=== PATIENT | male | born 1940 | race Caucasian/White ===

== ENCOUNTER 2018-08-30 20:21 | Outpatient (REF) | payer MEDICARE, SELFPAY ==
[2018-08-30 20:45] LABS: Anion Gap 7.5 mmol/L (3-11); BUN 20 mg/dL (7-18); CO2 30.5 mmol/L (21.0-32.0); CREATININE 0.96 mg/dL (0.70-1.30); Calcium 8.4 mg/dL (8.5-10.1); Chloride 104 mmol/L (98-107); Glucose 175 mg/dL (70-100); Potassium 4.1 mmol/L (3.5-5.1); Sodium 142 mmol/L (136-145)
== END 2018-08-30 20:41 ==
LOC: NCHCN 20:21
PROVIDERS: PCP Specialist/Technologist Athletic Trainer; Visit Provider Specialist/Technologist Athletic Trainer
DX: E11.9 Type 2 diabetes mellitus without complications (principal)
CPT/HCPCS: 80048

== ENCOUNTER 2018-09-19 09:37 | Outpatient (REF) | payer MEDICARE, SELFPAY ==
[2018-09-19 22:44] LABS: Cholesterol 175 mg/dL (50-200); HDL Cholesterol 31 mg/dL (40-60); LDL CHOLESTEROL 97 mg/dL (<100); Triglyceride 199 mg/dL (30-150)
== END 2018-09-19 09:57 ==
LOC: NCHCN 09:37
PROVIDERS: PCP Specialist/Technologist Athletic Trainer; Visit Provider Specialist/Technologist Athletic Trainer
DX: E78.5 Hyperlipidemia, unspecified (principal)
CPT/HCPCS: 80061; 83721

== ENCOUNTER 2019-08-27 12:44 | Outpatient (REF) | payer MEDICARE, SELFPAY ==
[2019-08-27 22:21] LABS: ALT 27 U/L (16-63); AST 16 U/L (15-37); Albumin 3.5 g/dL (3.4-5.0); Alkaline Phosphatase 90 U/L (46-116); Anion Gap 7.7 mmol/L (3-11); BUN 24 mg/dL (7-18); Bilirubin, Total 0.5 mg/dL (0.2-1.0); CO2 29.3 mmol/L (21.0-32.0); CREATININE 0.99 mg/dL (0.70-1.30); Calcium 8.4 mg/dL (8.5-10.1); Calculated LDL 58 mg/dL; Chloride 107 mmol/L (98-107); Cholesterol 150 mg/dL (<200); Glucose 144 mg/dL (74-106); HDL Cholesterol 25 mg/dL (40-60); Magnesium 1.8 mg/dL (1.8-2.4); Sodium 144 mmol/L (136-145); Total Protein 6.5 g/dL (6.4-8.2); Triglyceride 339 mg/dL (<150)
== END 2019-08-27 13:04 ==
LOC: NCHCN 12:44
PROVIDERS: PCP Specialist/Technologist Athletic Trainer; Visit Provider Specialist/Technologist Athletic Trainer
DX: E11.9 Type 2 diabetes mellitus without complications (principal); E78.5 Hyperlipidemia, unspecified
CPT/HCPCS: 80053; 80061; 83735

== ENCOUNTER 2020-03-28 10:10 | Emergency (ER) | payer MEDICARE, SELFPAY ==
[2020-03-28 10:13] VITALS: BP 158/79; PULSE 54; RESP 16; TEMP 36.4; O2SAT 100
--- NOTE | 2020-03-28 10:25 | ED.GENADUL_ITS ---
Discharge Plan Disposition Patient Disposition: HOME Condition: Stable Discharge Details Chief Complaint: Laceration Clinical Impression: Laceration of leg, right Primary Care Provider: Yordan Licea ED Provider: Jhony Poon Home Meds and New Rx's Prescriptions: Continued Reliv Vitamin Packs 3 cap PO DAILY RF: 0 metformin 500 mg tablet 500 mg PO BID RF: 0 gabapentin 300 mg capsule 300 mg PO DAILY RF: 0 Discharge Instructions Instructions: Laceration (ED) Additional Instructions: return in 10 days for evaluation of the woud for suture removal if you have spreading redness, worsening pain or yellow/white discharge return to the emergency department Medical Decision Making 80 yo male comes in after he was using a kristine saw and it slipped causing about an 8 cm laceration about 4cm superior to the anterior knee. It runs horizontal and he has full range of motion of the knee and hip and has intact senastion and pulses, no cuts over the knee to suggest capsule violation and no evidence of tendon injury. Will suture wound closed placed one running suture and then one simple suture to close small area that did not close and he tolerated well without complications, will d/c home Differential Diagnosis Differential Diagnosis: laceration, abrasion HPI General Mode of arrival: ambulatory . Date/Time Provider Initiated Documentation: 03/28/20 10:10 . Limitations to Documentation: no limitations . Information obtained by: patient . History of Present Illness 80 year old M presents to the emergency department with the chief complaint of right leg laceration, described as moderate, Patient started experiencing this hour(s) (1) and it has been constant. No relieving factors improve symptom(s), No exacerbating factors reported . Patient did receive the following treatments prior to arrival, none Related Data Home Medications Medication Instructions Recorded Confirmed Reliv Vitamin Packs 3 cap PO DAILY 09/07/16 09/08/16 gabapentin 300 mg PO DAILY 03/28/20 03/28/20 metformin 500 mg PO BID 03/28/20 03/28/20 Allergies Allergy/AdvReac Type Severity Reaction Status Date / Time No Known Allergies Allergy Unverified 03/28/20 10:17 General Stated Complaint: Laceration LEENA: 3 Review of Systems All systems reviewed & are unremarkable except as noted in HPI and below Constitutional Constitutional: Denies chills, Denies fever(s) and Denies weakness Cardiovascular Cardiovascular: Denies chest pain and Denies dyspnea Respiratory Respiratory: Denies cough and Denies dyspnea Gastrointestinal Gastrointestinal: Denies abdominal pain, Denies nausea and Denies vomiting Musculoskeletal Musculoskeletal: Denies joint swelling Neurologic Neurologic: Denies weakness [facility] Surgical History (Updated 05/31/18 @ 14:33 by [employer] [facility] [place]) Tonsillectomy and adenoidectomy Social History Smoking/Tobacco Use Status: Former Tobacco Use Alcohol Intake: never Drug use: Never Substance use type: does not use Do you feel safe at home: Yes Do you feel safe in your relationship?: Yes Exam Const General: no acute distress Orientation: alert HENGA Head: normal to inspection Ears: external ears normal General nose exam: external nose normal Mouth: moist mucous membranes Eyes General: appearance normal, both eyes and all related structures Neck Neck: normal visual inspection Resp Effort & Inspection: normal respiratory effort and able to speak in complete sentences Cardio Rate: regular rate Skin General skin exam: no rashes or lesions noted Neuro General: patient alert and patient oriented x3 Extrem General: full ROM and capillary refill normal Psych Mental Status: mental status grossly normal Course Vital Signs Vital signs: Vital Signs Temperature 36.4 C L 03/28/20 10:13 Pulse 54 L 03/28/20 10:13 Respiratory Rate 16 03/28/20 10:13 Blood Pressure 158/79 H 03/28/20 10:13 Pulse Oximetry 100 03/28/20 10:13 Temperature 36.4 C L 03/28/20 10:13 Temperature Source Tympanic 03/28/20 10:13 Pulse 54 L 03/28/20 10:13 Respiratory Rate 16 03/28/20 10:13 Respiratory Effort Non-Labored 03/28/20 10:17 Blood Pressure 158/79 H 03/28/20 10:13 Blood Pressure Position Sitting 03/28/20 10:13 Pulse Oximetry 100 03/28/20 10:13 Oxygen Delivery Method Room Air 03/28/20 10:13 Oxygen Flow Rate 0 03/28/20 10:13 Pain Level 10 03/28/20 10:13 Procedures Laceration Laceration 1: Site: lower extremity Side (If applicable): right Size (cm): 8 Description: linear Depth: simple, single layer Local Anesthetic: Lidocaine 1% and with Epi Amount of anesthesia used (mL): 10 Pre-repair: wound explored and irrigated extensively Skin layer closed with: nylon Size (cm): 4-0 Number of sutures: 2 Technique: simple, interrupted (1) and other (1 running suture)
[2020-03-28 10:58] VITALS: BP 131/74; PULSE 65; RESP 18; TEMP 36.8; O2SAT 96
== END 2020-03-28 11:10 | disposition home or self-care (01) ==
LOC: ER 10:59
PROVIDERS: Emergency Provider Emergency Medicine; PCP Family Medicine
DX: S71.111A Laceration without foreign body, right thigh, initial encounter (principal); W27.0XXA Contact with workbench tool, initial encounter
CPT/HCPCS: 12004

== ENCOUNTER 2020-03-30 09:42 | Emergency (ER) | payer MEDICARE, SELFPAY ==
[2020-03-30 09:46] VITALS: BP 116/60; PULSE 59; RESP 18; TEMP 36.5; O2SAT 97
--- NOTE | 2020-03-30 09:59 | ED.GENADUL_ITS ---
Discharge Plan Disposition Patient Disposition: HOME Condition: Improving Discharge Details Chief Complaint: Cellulitis Clinical Impression: Visit for wound check Primary Care Provider: Tara Wylie ED Provider: Harry Ferguson Home Meds and New Rx's Prescriptions: New cephalexin 500 mg capsule 500 mg PO TID 7 Days Qty: 21 RF: 0 No Action Reliv Vitamin Packs 3 cap PO DAILY RF: 0 metformin 500 mg tablet 500 mg PO BID RF: 0 gabapentin 300 mg capsule 300 mg PO DAILY RF: 0 Discharge Instructions Additional Instructions: Every 6 hours today, then fill prescription and begin every 8 hours. Please follow-up in orthopedic clinic this week for recheck. The office #[phone] and you should call for an appointment time. Your name will be placed on the orthopedic follow-up list this weekend. Return for worsening swelling, development of fever or chills, or any other acute concerns. Please take Keflex every 6 hours today and then begin every 8 hours as per prescription. May apply ice to reduce discomfort. Elevate the leg above the level of the heart to reduce swelling. Medical Decision Making 80-year-old male who was seen in the emergency [place] on Tuesday for a laceration to the right distal thigh. Now with deep tendon erythema, edema, pain. The right knee joint is still mobile, the injury is proximal to this. He primarily has dependent hyperemia, but cannot exclude developing area of infection. Small bit of serous fluid expressed and sent for culture. I will place him on a course of Keflex. I feel he would be best served by follow-up in orthopedic clinic for recheck as he has seen Dr. Buckley in the past for a wound infection. Patient instructed to elevate, rest, and to return for worsening or the development of systemic signs/symptoms of progressive illness HPI General Mode of arrival: ambulatory . Date/Time Provider Initiated Documentation: 03/30/20 09:42 . Limitations to Documentation: no limitations . Information obtained by: patient . History of Present Illness 80 year old M presents to the emergency department with the chief complaint of Wound check right leg, described as mild, Quality is described as dull and constant, and is localized to the right and lower extremity. Patient reports no radiation. Patient started experiencing this day(s) and it has been constant. No relieving factors improve symptom(s), Patient notes denies fever/chills. Related Data Home Medications Medication Instructions Recorded Confirmed Reliv Vitamin Packs 3 cap PO DAILY 09/07/16 03/30/20 gabapentin 300 mg PO DAILY 03/28/20 03/30/20 metformin 500 mg PO BID 03/28/20 03/30/20 cephalexin 500 mg PO TID 7 Days #21 cap 03/30/20 Previous Rx's Medication Instructions Recorded cephalexin 500 mg PO TID 7 Days #21 cap 03/30/20 Allergies Allergy/AdvReac Type Severity Reaction Status Date / Time No Known Allergies Allergy Unverified 03/30/20 09:49 General Stated Complaint: Cellulitis LEENA: 3 Review of Systems Narrative: No fever or chills, otherwise well [facility] Surgical History (Updated 05/31/18 @ 14:33 by [employer] [place]) Tonsillectomy and adenoidectomy Social History Smoking/Tobacco Use Status: Former Tobacco Use Alcohol Intake: never Drug use: Never Substance use type: does not use Do you feel safe at home: Yes Do you feel safe in your relationship?: Yes Exam Narrative Exam Narrative: GEN: awake, alert, oriented 3. Pleasant, well groomed, interactive. HEAD: Normocephalic, atraumatic ENT: Mucous membranes moist, oropharynx unremarkable, External ear exam unremarkable EYES: PERRL, EOMI EXT: Full ROM, right distal anterior thigh with a transverse oriented laceration with sutures in place, there is dependent erythema and edema. Unable to express purulent material. Neuro: Grossly normal neurologic exam, conversant, interactive. Psych: Speech fluent, thoughts congruent, affect normal Course Vital Signs Vital signs: Vital Signs Temperature 36.5 C 03/30/20 09:46 Pulse 59 L 03/30/20 09:46 Respiratory Rate 18 03/30/20 09:46 Blood Pressure 116/60 03/30/20 09:46 Pulse Oximetry 97 03/30/20 09:46 Temperature 36.5 C 03/30/20 09:46 Temperature Source Tympanic 03/30/20 09:46 Pulse 59 L 03/30/20 09:46 Respiratory Rate 18 03/30/20 09:46 Respiratory Effort Non-Labored 03/30/20 09:49 Blood Pressure 116/60 03/30/20 09:46 Blood Pressure Position Sitting 03/30/20 09:46 Pulse Oximetry 97 03/30/20 09:46 Oxygen Delivery Method Room Air 03/30/20 09:46 Oxygen Flow Rate 0 03/30/20 09:46 Lab/Test Results Lab/Test Results: 03/30/20 09:58 Leg - Right Upper Skin Culture - Pending
[2020-03-30] MEDS: Cephalexin 500 MG CAP, 4 CAPS/BTL PO (10:09)
== END 2020-03-30 10:17 | disposition home or self-care (01) ==
PROVIDERS: Emergency Provider Emergency Medicine; PCP Family Medicine
DX: R60.0 Localized edema (principal); S71.111A Laceration without foreign body, right thigh, initial encounter; W31.2XXA Contact with powered woodworking and forming machines, initial encounter; L53.8 Other specified erythematous conditions; B95.61 Methicillin susceptible Staphylococcus aureus infection as the cause of diseases classified elsewhere
CPT/HCPCS: 87077; 99283; 87070; 87186

== ENCOUNTER → 2020-04-02 09:59 | Outpatient (BNVA) | payer MEDICARE, SELFPAY | PROVIDERS: PCP Family Medicine; Referring Provider Family Medicine; Visit Provider Orthopaedic Surgery | DX: S81.811A Laceration without foreign body, right lower leg, initial encounter (principal); W27.0XXA Contact with workbench tool, initial encounter; L08.89 Other specified local infections of the skin and subcutaneous tissue | CPT/HCPCS: 99214 ==

== ENCOUNTER → 2020-04-08 09:28 | Outpatient (BNVA) | payer MEDICARE, SELFPAY | PROVIDERS: PCP Family Medicine; Referring Provider Family Medicine; Visit Provider Orthopaedic Surgery | DX: S81.811D Laceration without foreign body, right lower leg, subsequent encounter (principal); X58.XXXD Exposure to other specified factors, subsequent encounter; L08.89 Other specified local infections of the skin and subcutaneous tissue | CPT/HCPCS: 99213 ==

== ENCOUNTER → 2020-04-23 10:30 | Outpatient (BNVA) | payer MEDICARE, SELFPAY | PROVIDERS: PCP Family Medicine; Referring Provider Family Medicine; Visit Provider Orthopaedic Surgery | DX: S81.811D Laceration without foreign body, right lower leg, subsequent encounter (principal); X58.XXXD Exposure to other specified factors, subsequent encounter; L08.89 Other specified local infections of the skin and subcutaneous tissue | CPT/HCPCS: 99213 ==

== ENCOUNTER 2020-05-19 18:26 | Outpatient (REF) | payer MEDICARE, SELFPAY ==
[2020-05-19 21:20] LABS: Abs Immature Grans 0.01 10^3/uL (0.0-0.06); Absolute Basophil Count 0.04 10^3/uL (0.0-0.2); Absolute Eosinophil Count 0.17 10^3/uL (0.0-0.7); Absolute Lymphocyte Count 0.83 10^3/uL (1.2-3.4); Absolute Monocyte Count 0.42 10^3/uL (0.1-0.8); Absolute Neutrophil Count 2.28 10^3/uL (1.2-6.7); Basophils % 1.1; Eosinophils % 4.5; HCT 43.8 % (40.0-50.0); HGB 14.5 g/dL (13.5-17.5); Immature Grans % 0.3; Lymphocytes % 22.1; MCH 30.1 pg (27.0-33.0); MCHC 33.1 % (32.0-36.0); MCV 91.1 fL (80-95); MPV 10.7 fL (8.0-11.0); Monocytes % 11.2; Neutrophils % 60.8; Nucleated RBC 0 %; Platelet Count 160 10^3/uL (130-400); RBC 4.81 10^6/uL (4.36-5.78); RDW 13.5 % (11.8-14.1); RDW-SD 45.6 fL; WBC 3.75 10^3/uL (4.4-10.8)
[2020-05-19 21:54] LABS: ALT 23 U/L (16-63); AST 19 U/L (15-37); Albumin 3.7 g/dL (3.4-5.0); Alkaline Phosphatase 96 U/L (46-116); Anion Gap 5.2 mmol/L (3-11); BUN 23 mg/dL (7-18); Bilirubin, Total 0.6 mg/dL (0.2-1.0); CO2 31.8 mmol/L (21.0-32.0); Calcium 8.7 mg/dL (8.5-10.1); Calculated LDL 102 mg/dL (<100); Chloride 105 mmol/L (98-107); Cholesterol 177 mg/dL (<200); Glucose 120 mg/dL (74-106); HDL Cholesterol 33 mg/dL (40-60); Sodium 142 mmol/L (136-145); TSH (W/Ref FT4) 2.75 uIU/mL (0.36-3.74); Total Protein 6.6 g/dL (6.4-8.2); Triglyceride 214 mg/dL (<150)
== END 2020-05-19 18:46 ==
LOC: NCHCN 18:26
PROVIDERS: PCP Family Medicine; Visit Provider Family Medicine
DX: E11.9 Type 2 diabetes mellitus without complications (principal); E78.5 Hyperlipidemia, unspecified; R53.83 Other fatigue
CPT/HCPCS: 80053; 80061; 84443; 85025

== ENCOUNTER 2020-11-19 10:09 | Outpatient (REF) | payer MEDICARE, SELFPAY ==
[2020-11-19 14:44] LABS: ALT 27 U/L (16-63); AST 25 U/L (15-37); Albumin 3.7 g/dL (3.4-5.0); Alkaline Phosphatase 111 U/L (46-116); Anion Gap 8.9 mmol/L (3-11); BUN 18 mg/dL (7-18); Bilirubin, Total 0.5 mg/dL (0.2-1.0); CO2 29.1 mmol/L (21.0-32.0); CREATININE 0.9 mg/dL (0.70-1.30); Calcium 8.6 mg/dL (8.5-10.1); Calculated LDL 75 mg/dL (<100); Chloride 106 mmol/L (98-107); Cholesterol 151 mg/dL (<200); Glucose 134 mg/dL (74-106); HDL Cholesterol 33 mg/dL (40-60); Sodium 144 mmol/L (136-145); Total Protein 6.5 g/dL (6.4-8.2); Triglyceride 215 mg/dL (<150)
== END 2020-11-19 10:10 | disposition home or self-care (01) ==
LOC: NCHCN 10:09
PROVIDERS: PCP Family Medicine; Visit Provider Urology
DX: E78.5 Hyperlipidemia, unspecified (principal)
CPT/HCPCS: 80053; 80061

== ENCOUNTER 2021-03-04 10:27 | Outpatient (CLI) | payer MEDICARE, SELFPAY ==
--- NOTE | 2021-03-04 09:30 | DI.RAD_ITS ---
Exam(s) XR SHOULDER LT COMPLETE 2+V EXAM: XR SHOULDER LT COMPLETE 2+V CLINICAL HISTORY: left shoulder pain. TECHNIQUE: 2D digital imaging was performed. COMPARISON: No exams were available for comparison FINDINGS: There is no evidence of fracture or dislocation. However, there is slight upward subluxation of the humeral head relative to the glenoid fossa with diminution of the subacromial space. There are no ca lcifications in the diminished subacromial space. No osteophytes. There is mild degenerative change s are noted in the AC joint. Bone density is normal. There are degenerative cysts in the mid latera l aspect of the humeral head. No ominous osseous lesions IMPRESSION: As above. Suspect rotator cuff pathology. If clinically indicated MRI can be performed. DATA REPOSITORY: RADIATION DOSE DELIVERED:
== END 2021-03-04 10:28 | disposition home or self-care (01) ==
LOC: DIORS 10:28
PROVIDERS: PCP Family Medicine; Referring Provider Family Medicine; Visit Provider Student in an Organized Health Care Education/Training Program
DX: M25.512 Pain in left shoulder (principal); M75.102 Unspecified rotator cuff tear or rupture of left shoulder, not specified as traumatic
CPT/HCPCS: 99203; 99213; 73030

== ENCOUNTER 2022-03-17 15:52 | Outpatient (REF) | payer MEDICARE, SELFPAY ==
[2022-03-17 15:09] LABS: Hemoglobin A1C 6.9 % (<5.7)
[2022-03-17 15:23] LABS: ALT 27 U/L (16-63); AST 21 U/L (15-37); Albumin 3.7 g/dL (3.4-5.0); Alkaline Phosphatase 103 U/L (46-116); Anion Gap 6.8 mmol/L (3-11); BUN 18 mg/dL (7-18); Bilirubin, Total 0.6 mg/dL (0.2-1.0); CO2 31.2 mmol/L (21.0-32.0); CREATININE 0.9 mg/dL (0.70-1.30); Calcium 8.4 mg/dL (8.5-10.1); Calculated LDL 93 mg/dL (<100); Chloride 104 mmol/L (98-107); Cholesterol 179 mg/dL (<200); Glucose 165 mg/dL (74-106); HDL Cholesterol 35 mg/dL (40-60); Potassium 3.7 mmol/L (3.5-5.1); Sodium 142 mmol/L (136-145); Total Protein 6.7 g/dL (6.4-8.2); Triglyceride 259 mg/dL (<150)
[2022-03-17 22:25] LABS: PSA, Screening 1.1 ng/mL (<=6.5)
[2022-03-18 05:49] LABS: Vitamin D 25 Total 33.5 ng/mL (30-100)
[2022-03-28 12:22] LABS: Testosterone, Free 8.48 ng/dL (2.88-10.5); Testosterone, Total 392 ng/dL (240-950)
== END 2022-03-17 15:53 | disposition home or self-care (01) ==
LOC: NCHCN 15:52
PROVIDERS: PCP Family Medicine; Visit Provider Family Medicine
DX: E78.5 Hyperlipidemia, unspecified (principal); E08.3292 Diabetes mellitus due to underlying condition with mild nonproliferative diabetic retinopathy without macular edema, left eye; R53.83 Other fatigue
CPT/HCPCS: 80053; 80061; 82306; 84153; 84402; 84403; 83036

== ENCOUNTER → 2022-03-19 00:29 | Outpatient (CLI) | payer MEDICARE, SELFPAY ==
--- NOTE | 2022-03-19 10:10 | DI.RAD_ITS ---
Exam(s) XR FOOT RT COMPLETE EXAM: XR FOOT RT COMPLETE CLINICAL HISTORY: RT FOOT PAIN M79.671. TECHNIQUE: 2D digital imaging was performed of the right foot. Three images were obtained. AP, obl ique and lateral views were obtained. COMPARISON: No exams were available for comparison FINDINGS: BONES: No acute fracture is present. No bony destructive lesion is seen. There is a small plantar bel caneal spur. There is a small enthesophyte at the Achilles insertion site. JOINTS: No dislocation present. Marked degenerative changes are seen at the 1st metatarsophalangeal j oint with loss of the joint space and periarticular spurring. Large osteophytes are seen arising fro m the joint along the dorsal aspect. There are more mild degenerative changes elsewhere in the foot. Hammertoe deformities of the 2nd, 3rd and 4th toes are noted. SOFT TISSUE: Dystrophic calcifications are seen on the plantar surface of the foot. Atherosclerosis is present. IMPRESSION: Osteoarthritis of the right foot. The findings are most marked at the 1st MTP joint. DATA REPOSITORY: RADIATION DOSE DELIVERED:
== END ==
PROVIDERS: PCP Family Medicine; Visit Provider Family Medicine
DX: M19.071 Primary osteoarthritis, right ankle and foot (principal)
CPT/HCPCS: 73630

== ENCOUNTER 2022-09-27 15:47 | Outpatient (REF) | payer MEDICARE, SELFPAY ==
[2022-09-27 15:13] LABS: Cholesterol 197 mg/dL (<200); HDL Cholesterol 34 mg/dL (40-60); Triglyceride 420 mg/dL (<150)
[2022-09-27 15:45] LABS: LDL CHOLESTEROL 73 mg/dL (<100)
== END 2022-09-27 15:48 | disposition home or self-care (01) ==
LOC: NCHCN 15:47
PROVIDERS: PCP Family Medicine; Visit Provider Family Medicine
DX: E78.5 Hyperlipidemia, unspecified (principal)
CPT/HCPCS: 80061; 83721

== ENCOUNTER 2022-11-20 11:16 | Emergency (ER) | payer MEDICARE, SELFPAY ==
[2022-11-20 11:28] VITALS: BP 141/63; PULSE 58; RESP 15; TEMP 37.2; O2SAT 97
--- NOTE | 2022-11-20 12:21 | DI.RAD_ITS ---
Exam(s) XR HAND RT COMPLETE EXAM: XR HAND RT COMPLETE CLINICAL HISTORY: 2nd digit pain. TECHNIQUE: 2D digital imaging was performed of the right hand. Three images were obtained. AP, late ral and oblique views were obtained. COMPARISON: No exams were available for comparison FINDINGS: BONES: No acute fracture is present. No bony destructive lesion is seen. JOINTS: No dislocation present. Degenerative changes are seen in the hand and wrist characterized by joint space narrowing and periarticular osteophytes. The findings are most marked at the interphalan geal joint of the thumb and the middle finger. Periarticular cystic changes are seen at multiple rosalba nts. SOFT TISSUE: Normal. IMPRESSION: 1. No acute fracture or dislocation. 2. Osteoarthritis. DATA REPOSITORY: RADIATION DOSE DELIVERED:
[2022-11-20 13:20] LABS: Abs Immature Grans 0.01 10^3/uL (0.0-0.06); Absolute Basophil Count 0.03 10^3/uL (0.0-0.2); Absolute Eosinophil Count 0.15 10^3/uL (0.0-0.7); Absolute Lymphocyte Count 0.86 10^3/uL (1.2-3.4); Absolute Neutrophil Count 2.98 10^3/uL (1.2-6.7); Basophils % 0.7; Eosinophils % 3.4; HCT 42.2 % (40.0-50.0); HGB 14.7 g/dL (13.5-17.5); Immature Grans % 0.2; Lymphocytes % 19.4; MCH 31.3 pg (27.0-33.0); MCHC 34.8 % (32.0-36.0); MCV 90 fL (80-95); Neutrophils % 67.3; Platelet Count 152 10^3/uL (130-400); RBC 4.69 10^6/uL (4.36-5.78); RDW 12.9 % (11.8-14.1); RDW-SD 42.5 fL; WBC 4.43 10^3/uL (4.4-10.8)
[2022-11-20 13:23] LABS: ESR 8 mm/hr (0-20)
[2022-11-20 13:33] LABS: Albumin 3.3 g/dL (3.4-5.0); C-Reactive Protein 0.27 mg/dL (0.0-0.3); Glucose 228 mg/dL (74-106); Total Protein 6.6 g/dL (6.4-8.2)
[2022-11-20 13:59] LABS: ALT 28 U/L (16-63); Alkaline Phosphatase 105 U/L (46-116); Anion Gap 10.1 mmol/L (3-11); BUN 19 mg/dL (7-18); Bilirubin, Total 0.4 mg/dL (0.2-1.0); CO2 25.9 mmol/L (21.0-32.0); CREATININE 1.1 mg/dL (0.70-1.30); Chloride 102 mmol/L (98-107); Estimated GFR 67.86 (mL/min/1.73m2); Sodium 138 mmol/L (136-145)
[2022-11-20 14:04] LABS: Calcium 8.5 mg/dL (8.5-10.1)
--- NOTE | 2022-11-20 14:04 | DI.VRAD_ITS ---
PROCEDURE INFORMATION: Exam: XR Right Hand Exam date and time: 11/20/2022 1:47 PM Age: 82 years old Clinical indication: Other: 2nd digit pain TECHNIQUE: Imaging protocol: Radiologic exam of the right hand. Views: 3 or more views. COMPARISON: CR RIGHT ELBOW COMPLETE 09/07/2016 10:53 AM FINDINGS: Bones/joints: Degenerative narrowing of all the PIP and DIP joints with periarticular osteophyte formation. Advanced arthropathy of the interphalangeal joint space of the thumb. Periarticular cystic changes along multiple joints. No acute fractures. Soft tissues: Soft tissue swelling. IMPRESSION: Polyarticular arthritis. Dictated and Authenticated by: Ever Underwood MD. Ordering:JARRELL Whalen MD
[2022-11-20 14:12] LABS: AST 17 U/L (15-37)
--- NOTE | 2022-11-20 14:49 | W.ED.GENAD ---
Discharge Plan Disposition Patient Disposition: Home Discharge Details Clinical Impression: Polyarthralgia Primary Care Provider: Tara Wylie ED Provider: Marlee Lux Home Meds and New Rx's Prescriptions: New cephalexin 500 mg capsule 500 mg PO Q6H 7 Days Qty: 28 0RF Continued Reliv Vitamin Packs 3 cap PO DAILY metformin 500 mg tablet 500 mg PO BID Patient Comments: TAKE TWO TABLETS BY MOUTH TWICE A DAY gabapentin 300 mg capsule 300 mg PO DAILY Patient Comments: Patient states he stopped taking about 1 year ago Rx Instructions: before bed time Discharge Instructions Additional Instructions: You may take the Keflex as prescribed if you are not having symptomatic improvement with taking ibuprofen 400 mg 3 times daily for the next 5 days I suspect this is pain and swelling from your arthritis and will resolve if you decrease the use of your finger, wearing the splint, elevating, icing, will likely help Please be reevaluated by your doctor in 1 week and return earlier should you have new or worsening complaints Referrals: Tara Wylie [Primary Care Provider] - 1 day Discharge Data Discharge Date/Time-TO BE ENTERED AT DEPARTURE: 11/20/22 15:29 Medical Decision Making Patient presents with redness and swelling to his second digit the past 3 weeks on his hand Patient with reassuring labs, and CRP within normal limits, afebrile, nontoxic, with mild elevation in glucose, encouraged to supplement at home Evidence of infection, patient will take ibuprofen regularly and begin antibiotics only with persistent symptoms despite immobilization with splint and and regular ibuprofen use I have very low suspicion that this is bacterial in nature and I suspect is probably secondary to polyarthritis, x-ray shows evidence of polyarthritis of patient's hand which was reviewed by me and interpreted by radiology HPI General Date/Time Provider Initiated Documentation: 11/20/22 11:35. HPI Narrative: This 82-year-old male presents with right index finger swelling and tenderness for the past 3 weeks. States he had a puncture 3 weeks ago and is unsure if it is related. States he has pain with flexion and extension tension. States his blood sugars have been within normal limits. Related Data Home Medications Medication Instructions Recorded Confirmed Reliv Vitamin Packs 3 cap PO DAILY 09/07/16 11/20/22 gabapentin 300 mg capsule 300 mg PO DAILY 03/28/20 03/04/21 metformin 500 mg tablet 500 mg PO BID 03/28/20 11/20/22 cephalexin 500 mg capsule 500 mg PO Q6H 7 days #28 caps 11/20/22 Previous Rx's Medication Instructions Recorded cephalexin 500 mg capsule 500 mg PO Q6H 7 days #28 caps 11/20/22 Allergies Allergy/AdvReac Type Severity Reaction Status Date / Time No Known Allergies Allergy Unverified 11/20/22 13:19 General Stated Complaint: [employer] LEENA: 4 PFSH All Active Problems (Updated 11/20/22 @ 14:58 by [facility] [place]) Polyarthralgia (Acute) Traumatic tear of left rotator cuff (Acute ~10/2020) Surgical History (Updated 05/31/18 @ 14:33 by [facility] [place]) Tonsillectomy and adenoidectomy Social History Smoking/Tobacco Use Status: Former Tobacco Use Smoking risk assessment performed?: Yes Alcohol Intake: never Drug use: Never Substance use type: does not use Current gender identity: male Do you feel safe at home: Yes Do you feel safe in your relationship?: Yes Exam Narrative Exam Narrative: Patient with swelling and tenderness to right second digit, neurovascularly intact, no lymphangitis or crepitus, no erythema Course Vital Signs Vital signs: Vital Signs Temperature 37.2 C 11/20/22 11:28 Pulse 58 L 11/20/22 11:28 Respiratory Rate 15 11/20/22 11:28 Blood Pressure 141/63 H 11/20/22 11:28 Pulse Oximetry 97 11/20/22 11:28 Temperature 37.2 C 11/20/22 11:28 Temperature Source Oral 11/20/22 11:28 Pulse 58 L 11/20/22 11:28 Respiratory Rate 15 11/20/22 11:28 Respiratory Effort Normal, Non-Labored 11/20/22 13:12 Blood Pressure 141/63 H 11/20/22 11:28 Blood Pressure Position Sitting 11/20/22 11:28 Pulse Oximetry 97 11/20/22 11:28 Oxygen Delivery Method Room Air 11/20/22 11:28 Oxygen Flow Rate 0 11/20/22 11:28 Pain Level 5 11/20/22 13:16 Lab/Test Results Lab/Test Results: Laboratory Tests Range/Units 11/20/22 11/20/22 11/20/22 13:10 13:10 13:10 WBC (4.4-10.8) 10^3/uL 4.43 RBC (4.36-5.78) 10^6/uL 4.69 Hgb (13.5-17.5) g/dL 14.7 Hct (40.0-50.0) % 42.2 MCV (80-95) fL 90 MCH (27.0-33.0) pg 31.3 MCHC (32.0-36.0) % 34.8 RDW (11.8-14.1) % 12.9 Plt Count (130-400) 10^3/uL 152 MPV (8.0-11.0) fL 10.0 Immature Gran % 0.2 Neutrophils % 67.3 Lymphocytes % 19.4 Monocytes % 9.0 Eosinophils % 3.4 Basophils % 0.7 Nucleated RBC % (0.0-0.3) % 0.0 Absolute Neutrophils (1.2-6.7) 10^3/uL 2.98 Absolute Lymphocytes (1.2-3.4) 10^3/uL 0.86 L Absolute Monocytes (0.1-0.8) 10^3/uL 0.40 Absolute Eosinophils (0.0-0.7) 10^3/uL 0.15 Absolute Basophils (0.0-0.2) 10^3/uL 0.03 ESR (0-20) mm/hr 8 Sodium (136-145) mmol/L 138 Potassium (3.5-5.1) mmol/L 4.0 Chloride (98-107) mmol/L 102 Carbon Dioxide (21.0-32.0) mmol/L 25.9 Anion Gap (3-11) mmol/L 10.1 BUN (7-18) mg/dL 19 H Creatinine (0.70-1.30) mg/dL 1.1 Est GFR (CKD-EPI 2020) (mL/min/1.73m2) 67.86 Glucose (74-106) mg/dL 228 H Calcium (8.5-10.1) mg/dL 8.5 Total Bilirubin (0.2-1.0) mg/dL 0.4 AST (15-37) U/L 17 ALT (16-63) U/L 28 Alkaline Phosphatase (46-116) U/L 105 C-Reactive Protein (0.0-0.3) mg/dL 0.27 Total Protein (6.4-8.2) g/dL 6.6 Albumin (3.4-5.0) g/dL 3.3 L
[2022-11-20 22:01] LABS: Diff Comment Diff Reviewed; RBC Morphology Normal
== END 2022-11-20 15:29 | disposition home or self-care (01) ==
PROVIDERS: Emergency Provider Physician Assistant; PCP Family Medicine
DX: M25.541 Pain in joints of right hand (principal); R73.09 Other abnormal glucose
CPT/HCPCS: 80053; 85652; 99283; 73130; 85025; 86140

== ENCOUNTER 2023-03-30 10:37 | Outpatient (REF) | payer MEDICARE, SELFPAY ==
[2023-03-30 16:13] LABS: Hemoglobin A1C 7.6 % (<5.7)
[2023-03-30 16:37] LABS: ALT 25 U/L (16-63); AST 20 U/L (15-37); Albumin 3.5 g/dL (3.4-5.0); Alkaline Phosphatase 104 U/L (46-116); Anion Gap 7.6 mmol/L (3-11); BUN 18 mg/dL (7-18); Bilirubin, Total 0.4 mg/dL (0.2-1.0); CO2 29.4 mmol/L (21.0-32.0); CREATININE 0.9 mg/dL (0.70-1.30); Calcium 8.4 mg/dL (8.5-10.1); Calculated LDL 86 mg/dL (<100); Chloride 106 mmol/L (98-107); Cholesterol 171 mg/dL (<200); Glucose 185 mg/dL (74-106); HDL Cholesterol 32 mg/dL (40-60); Potassium 4.2 mmol/L (3.5-5.1); Sodium 143 mmol/L (136-145); Total Protein 6.4 g/dL (6.4-8.2); Triglyceride 268 mg/dL (<150)
[2023-03-30 17:47] LABS: Vitamin D 25 Total 33.6 ng/mL (30-100)
== END 2023-03-30 10:38 | disposition home or self-care (01) ==
LOC: NCHCN 10:37
PROVIDERS: PCP Family Medicine; Visit Provider Family Medicine
DX: E78.5 Hyperlipidemia, unspecified (principal); E11.9 Type 2 diabetes mellitus without complications; Z79.899 Other long term (current) drug therapy
CPT/HCPCS: 80053; 80061; 82306; 83036

== ENCOUNTER 2023-12-28 05:09 | Outpatient (CLI) | payer MEDICARE, SELFPAY ==
[2023-12-28 12:32] LABS: Anion Gap 6.3 mmol/L (3-11); BUN 21 mg/dL (7-18); CO2 31.7 mmol/L (21.0-32.0); CREATININE 1.1 mg/dL (0.70-1.30); Calcium 8.7 mg/dL (8.5-10.1); Calculated LDL 86 mg/dL (<100); Chloride 105 mmol/L (98-107); Cholesterol 172 mg/dL (<200); Estimated GFR 67.44 (mL/min/1.73m2); Glucose 151 mg/dL (74-106); HDL Cholesterol 34 mg/dL (40-60); Potassium 4.3 mmol/L (3.5-5.1); Sodium 143 mmol/L (136-145); Triglyceride 263 mg/dL (<150)
== END 2023-12-28 05:10 | disposition home or self-care (01) ==
LOC: LOS 05:09
PROVIDERS: PCP Nurse Practitioner Family; Visit Provider Nurse Practitioner Family
DX: Z13.6 Encounter for screening for cardiovascular disorders (principal); Z13.1 Encounter for screening for diabetes mellitus
CPT/HCPCS: 36415; 80048; 80061

== ENCOUNTER 2024-11-15 09:02 | Outpatient (CLI) | payer MEDICARE, SELFPAY | END 2024-11-15 09:03 | disposition home or self-care (01) | LOC: DI.CM 09:03 | PROVIDERS: PCP Nurse Practitioner Family; Visit Provider Nurse Practitioner Family | CPT/HCPCS: 93010 ==

== ENCOUNTER 2024-11-16 01:08 | Outpatient (CLI) | payer MEDICARE, SELFPAY ==
[2024-11-16 12:28] LABS: Abs Immature Grans 0.02 10^3/uL (0.0-0.06); Absolute Basophil Count 0.03 10^3/uL (0.0-0.2); Absolute Eosinophil Count 0.14 10^3/uL (0.0-0.7); Absolute Lymphocyte Count 0.83 10^3/uL (1.2-3.4); Absolute Monocyte Count 0.48 10^3/uL (0.1-0.8); Absolute Neutrophil Count 4.03 10^3/uL (1.2-6.7); Basophils % 0.5 %; Eosinophils % 2.5 %; HCT 45.4 % (40.0-50.0); HGB 15.4 g/dL (13.5-17.5); Immature Grans % 0.4 %; MCH 31.4 pg (27.0-33.0); MCHC 33.9 % (32.0-36.0); MCV 93 fL (80-95); MPV 10.2 fL (8.0-11.0); Monocytes % 8.7 %; Neutrophils % 72.9 %; Platelet Count 162 10^3/uL (130-400); RBC 4.91 10^6/uL (4.36-5.78); RDW 13.1 % (11.8-14.1); RDW-SD 44.5 fL; WBC 5.53 10^3/uL (4.4-10.8)
[2024-11-16 12:34] LABS: ESR 5 mm/hr (0-20)
[2024-11-16 12:38] LABS: Anion Gap 5.4 mmol/L (3-11); BUN 18 mg/dL (7-18); CO2 30.6 mmol/L (21.0-32.0); CREATININE 1.1 mg/dL (0.70-1.30); Calcium 9.2 mg/dL (8.5-10.1); Chloride 106 mmol/L (98-107); Estimated GFR 67.02 (mL/min/1.73m2); Glucose 169 mg/dL (74-106); Potassium 4.1 mmol/L (3.5-5.1); Sodium 142 mmol/L (136-145)
[2024-11-16 21:51] LABS: CRP, High Sensitivity 9.98 mg/L (See Note)
== END 2024-11-16 01:09 | disposition home or self-care (01) ==
PROVIDERS: PCP Nurse Practitioner Family; Visit Provider Podiatrist Foot & Ankle Surgery
DX: I10 Essential (primary) hypertension (principal); Z01.818 Encounter for other preprocedural examination; E11.9 Type 2 diabetes mellitus without complications
CPT/HCPCS: 36415; 80048; 85652; 86141; 85025; 86140

== ENCOUNTER 2024-11-16 08:45 | Outpatient (CLI) | payer MEDICARE, SELFPAY ==
--- NOTE | 2024-11-16 08:45 | RT.EKG_ITS ---
APPROVED REPORT Exam: Resting ECG Reason for Exam: Pre-Op Patient Location: O HR:53 bpm ECG Measurements Heart Rate 53 AXIS OR 353 P -13 QRSd 151 QRS -60 QT 479 T 1 QTc 450 Conclusion Sinus rhythm...normal P axis, V-rate 50- 99 Prolonged OR interval...OR >220, V-rate 50- 90 RBBB and LAFB...QRSd >120mS, axis(-40,240)
== END 2024-11-16 08:46 | disposition home or self-care (01) ==
LOC: DI.CM 08:46
PROVIDERS: PCP Nurse Practitioner Family; Visit Provider Nurse Practitioner Family
DX: Z01.818 Encounter for other preprocedural examination (principal)
CPT/HCPCS: 93010

== ENCOUNTER 2025-01-01 07:30 | Inpatient (IN) | payer MEDICARE, SELFPAY ==
[2025-01-01] VITALS (10 sets, daily range): BP systolic 101–147; BP diastolic 46–93; PULSE 55–87; RESP 16–20; TEMP 36.6–38.7; O2SAT 93–96
--- NOTE | 2025-01-01 07:30 | RT.EKG_ITS ---
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
--- NOTE | 2025-01-01 08:00 | W.ED.GENAD ---
Discharge Plan Disposition Patient Disposition: Admit to [facility] Condition: Stable Discharge Details Chief Complaint: Dizzy/Sync Clinical Impression: Pulmonary embolism, bilateral, Thrombocytopenia, High transaminase levels Admit Date/Time: 01/01/25 10:57 Admit Provider: Chente Lyle Attending Provider: Chente Lyle Primary Care Provider: Stu Lewis ED Provider: Muna Villalobos Discharge Data Discharge Date/Time-TO BE ENTERED AT DEPARTURE: 01/01/25 11:44 HPI General Mode of arrival: ambulatory. Date/Time Provider Initiated Documentation: 01/01/25 07:33. Limitations to Documentation: no limitations. Information obtained by: patient and old records reviewed. HPI Narrative: HPI: This is an 84-year-old male patient with a past medical history significant for type 2 diabetes, hypertension, hyperlipidemia, and a recent partial amputation of his right second toe at [facility] on 12/14/2024, presenting for evaluation of dizziness and poor balance. The patient reports that for the last week he was noticing that he had some dizziness described as lightheadedness, associated with poor balance that occurred when he stood up and tried to walk. He feels like he is falling towards his left side. He states that he is not dizzy when sitting or laying down, and has not noted that change in position exacerbates the symptoms. He exclusively feels the symptoms when he tries to walk. He has not fallen or sustained injury as a result of these symptoms. He reports that he has had 3 weeks of a mild nonproductive cough described as a tickle in his chest. He noted no chest pain, nausea or vomiting, dysuria or changes in bowel habits. He states that the wound on his toe was healing very well, and he is scheduled for a follow-up appointment on Tuesday to have the stitches removed. He was prescribed 5 days of Bactrim to take after this surgery, states that he took a few days of it and then stopped, wondering if this was associated with his symptoms. He endorses a sensation of full body weakness but has not noted any unilateral weakness. He has baseline peripheral neuropathy in his feet, no new numbness or tingling. No changes in vision or headache. He was noted to be febrile in triage, states that he has had a few nights where he felt sweaty, has not noticed that he had a fever at home. Related Data Home Medications ?Medication ?Instructions ?Recorded ?Confirmed Reliv Vitamin Packs 3 cap PO DAILY 09/07/16 01/01/25 metformin 500 mg tablet,extended 1,000 mg (2 x 500 mg) PO BID #360 01/12/24 01/01/25 release 24 hr tabs apixaban 5 mg tablet 5 mg PO BID #60 tabs 01/01/25 sulfamethoxazole 500 mg tablet mg PO profolactic 01/01/25 Previous Rx's ?Medication ?Instructions ?Recorded metformin 500 mg tablet,extended 1,000 mg (2 x 500 mg) PO BID #360 01/12/24 release 24 hr tabs apixaban 5 mg tablet 5 mg PO BID #60 tabs 01/01/25 Allergies Allergy/AdvReac Type Severity Reaction Status Date / Time No Known Allergies Allergy Unverified 01/01/25 07:58 General Stated Complaint: Dizzy/Sync LEENA: 2 Exam Narrative Exam Narrative: Gen: awake and alert, in no apparent distress. Appears well nourished. HEENT: PERRL, EOMs full and without nystagmus. Eye movements do not exacerbate the patient's symptoms of dizziness. External ears and nose normal, mucous membranes moist. Neck: Supple, full range of motion, no observable masses Lungs: No increased work of breathing, lung sounds clear and equal bilaterally without wheezes, rhonchi, or rales. CV: Heart with regular rate and rhythm, no murmurs auscultated. Strong and symmetrical radial pulses. Abdomen: Soft, nondistended, non-tender to palpation. No rigidity, rebound tenderness, or guarding. MSK: No joint swelling, no redness. Full ROM without limitation, no external traumatic findings. The patient is status post partial amputation of the right second toe, with a well-approximated and well-healing surgical wound, and no evidence of redness, swelling, or warmth compared to the unaffected toes. Skin: No rashes or lesions to visualized skin. Normal color, warm, and dry. Neuro: Cranial nerves II-XII intact and symmetrical bilaterally. 5/5 strength in all muscle groups x4 extremities. No new sensory deficits. No pronator drift. I do notice some difficulty with sarplp-rj-[id number] testing, left hand greater than right, no difficulties with [id number]-gl-[id number] bilaterally. Clear speech. Psych: Appropriate for situation. Course Vital Signs Vital signs: Vital Signs Temperature 38.7 C H 01/01/25 07:35 Pulse 72 01/01/25 07:35 Respiratory Rate 16 01/01/25 07:35 Blood Pressure 147/72 H 01/01/25 07:35 Pulse Oximetry 95 01/01/25 07:35 Temperature 38.7 C H 01/01/25 07:35 Pulse 72 01/01/25 07:35 Respiratory Rate 16 01/01/25 07:35 Respiratory Effort Normal 01/01/25 07:48 Respiratory Depth Normal 01/01/25 07:48 Respiratory Pattern Normal 01/01/25 07:48 Blood Pressure 147/72 H 01/01/25 07:35 Blood Pressure Position Supine 01/01/25 07:35 Pulse Oximetry 95 01/01/25 07:35 Oxygen Delivery Method Room Air 01/01/25 07:35 Oxygen Flow Rate 0 01/01/25 07:35 Pain Level 0 01/01/25 07:35 Medical Decision Making This is an 84-year-old male patient presenting for evaluation of dizziness and poor balance for 1 week. My differential includes but is not limited to stroke including posterior circulation stroke, intracranial hemorrhage, mass effect. The patient has no nuchal rigidity or alteration in mental status to significantly increase my concern for meningitis or encephalitis. He denies vertiginous symptoms but I did consider vertiginous pathologies such as M?ni?re's disease, labyrinthitis, BPPV. I considered metabolic and electrolyte derangements including kidney injury given the recent Bactrim use, metabolic and electrolyte derangements, dehydration, and anemia. I considered infectious pathologies, especially pneumonia, bronchitis, urinary tract infection. I note no evidence of wound infection on my inspection of his recent surgical site and feel that skin and soft tissue is less likely etiology of his symptoms. We obtained and I reviewed an EKG, which shows a normal sinus rhythm with a first-degree heart block, right bundle branch block and no acute ischemic changes when compared to priors. We will obtain a CTA of the brain and neck given her concern for stroke, patient does not meet criteria for stroke activation given that it has been 1 week since the onset of the symptoms. I will obtain a chest x-ray, and laboratory studies to include CBC, CMP, magnesium, troponin, TSH, INR, and urinalysis. - I reviewed the patient's laboratory studies, which show a mild leukopenia, no anemia but a new thrombocytopenia with a platelet count of 68. INR 1.1, chemistry panel with an GIGI BUN is now 24, creatinine 1.9, no other significant electrolyte derangements other than a slightly high sugar at 289. The patient does have a new transaminitis, troponin was negative and without increase on 1 hour recheck. Urinalysis noninfectious. CTA was reviewed by myself and discussed with the radiologist. The patient has no evidence of ischemia, vascular abnormality or intracranial hemorrhage, but was incidentally noted to have large pulmonary emboli bilaterally to the level of the main pulmonary artery. I added on a BNP, and given the patient's age and new thrombocytopenia I feel that he would benefit from overnight admission for observation despite his moderate risk Pesi score. I also feel that he would benefit from physical therapy given his balance issues that are not attributable to a posterior circulation stroke. I discussed this patient's case with the hospitalist who is graciously accepted the patient to their service for ongoing workup and management. I provided him with his first dose of Eliquis here in the ED at the request of the hospitalist team. Transferred to the floor without incident. Muna Villalobos MD Quality:SDOH Health Related Social Needs: No Data to Display PFSH All Active Problems (Updated 01/01/25 @ 14:19 by Muna Villalobos MD) High transaminase levels (Acute) Thrombocytopenia (Chronic) Pulmonary embolism, bilateral (Acute) Peripheral neuropathy (Acute) Hyperlipidemia (Acute) BPH (benign prostatic hyperplasia) (Chronic) Erectile dysfunction (Acute) Onychomycosis (Acute) Hammertoe of right foot (Acute) Paresthesia (Acute) Diabetes type 2, controlled (Acute) Skin lesion (Acute) Essential hypertension (Acute) Traumatic tear of left rotator cuff (Acute ~10/2020) Surgical History Tonsillectomy and adenoidectomy Family History Mother Breast cancer Diabetes Son Diabetes Social History (Updated 11/23/24 @ 11:28 by Shireen Carolina) Smoking/Tobacco Use Status: Former Tobacco Use tobacco type: cigarettes Quit Date: 08/15/1967 Tobacco: How many years used: 5 Quit status: quit date established Second Hand Exposure: No Smoking risk assessment performed?: Yes Alcohol Intake: never Drug use: Never Substance use type: does not use Counseling given: Yes Adopted: No Caregiver/Support person: No Household members: spouse Housing: house Number of Children: 2 number of grandchildren: 4 Communication Needs: None Do you need help understanding health information?: Never current occupation: retired Sexually active: No Do you think of yourself as: straight/heterosexual Current gender identity: male What is your relationship status?: How often do you talk on the phone with friends or family?: three or more times per week How often do you get together with friends or relatives?: three or more times per week How often do you attend sabianist or quaker services?: 4 or more times per year Do you belong to any clubs or organized social groups?: yes Panel score (0-1 are the most socially isolated patients): 4 Terri/Anabaptist: Sabianism Special terri needs: No Seatbelt use: always Helmet use: No Drive intox 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
[2025-01-01 08:34] LABS: Abs Immature Grans 0.01 10^3/uL (0.0-0.06); Absolute Basophil Count 0.02 10^3/uL (0.0-0.2); Absolute Eosinophil Count 0.02 10^3/uL (0.0-0.7); Absolute Lymphocyte Count 0.24 10^3/uL (1.2-3.4); Absolute Monocyte Count 0.24 10^3/uL (0.1-0.8); Absolute Neutrophil Count 3.22 10^3/uL (1.2-6.7); Basophils % 0.5 %; Eosinophils % 0.5 %; HCT 40.2 % (40.0-50.0); HGB 13.7 g/dL (13.5-17.5); Immature Grans % 0.3 %; Lymphocytes % 6.4 %; MCH 30.5 pg (27.0-33.0); MCHC 34.1 % (32.0-36.0); MCV 90 fL (80-95); MPV 10.7 fL (8.0-11.0); Monocytes % 6.4 %; Neutrophils % 85.9 %; RBC 4.49 10^6/uL (4.36-5.78); RDW 13.3 % (11.8-14.1); RDW-SD 43.8 fL; WBC 3.75 10^3/uL (4.4-10.8)
[2025-01-01] MEDS: Acetaminophen 500 MG TAB 1000 MG PO (08:34)
[2025-01-01 08:45] LABS: INR 1.1 (0.9-1.1); Prothrombin Time 11.2 sec (9.1-11.1)
[2025-01-01 08:48] LABS: Diff Comment Diff Reviewed; Platelet Count 68 10^3/uL (130-400); RBC Morphology Normal
[2025-01-01 08:58] LABS: ALT 67 U/L (16-63); AST 101 U/L (15-37); Alkaline Phosphatase 121 U/L (46-116); Anion Gap 9.8 mmol/L (3-11); BUN 24 mg/dL (7-18); Bilirubin, Total 0.6 mg/dL (0.2-1.0); CO2 24.2 mmol/L (21.0-32.0); CREATININE 1.9 mg/dL (0.70-1.30); Calcium 8.1 mg/dL (8.5-10.1); Chloride 97 mmol/L (98-107); Estimated GFR 34.79 (mL/min/1.73m2); Glucose 289 mg/dL (74-106); Magnesium 1.9 mg/dL (1.8-2.4); Potassium 4.6 mmol/L (3.5-5.1); Sodium 131 mmol/L (136-145); TSH 2.01 uIU/mL (0.36-3.74); Total Protein 6.6 g/dL (6.4-8.2); Troponin I 31 ng/L (<or=76)
[2025-01-01] MEDS: Normal Saline 500 ML IV (09:10)
--- NOTE | 2025-01-01 09:41 | DI.CT_ITS ---
Exam(s) CT BRAIN NECK CTA EXAM: CT BRAIN NECK CTA CLINICAL HISTORY: poor balance, ataxia, eval posterior stroke. TECHNIQUE: Imaging Protocol: Axial CT angiography was performed with multi-slice acquisition and mu lti-planar and MIP reconstructions. CONTRAST MATERIAL: Intravenous: Omnipaque 350 Contrast volume:70 mL COMPARISON: No exams were available for comparison FINDINGS: CT Head W/O and W contrast: Ventricles and Extra axial spaces: Normal in size and morphology for the patient's age. Hemorrhage: None. Cerebral parenchyma: No evidence of acute infarct or mass. Midline shift: None. Brainstem/Cerebellum: No acute findings.. Calvarium: Normal. Visualized Paranasal sinuses/Mastoids: Mucosal thickening. Mastoid air cells are clear. Soft Tissues: Unremarkable. Enhancement: Normal. Venous sinuses are patent. CTA Brain W: Internal Carotid Arteries: Right: No aneurysm, occlusion or significant stenosis. Left: No aneurysm, occlusion or significant stenosis. Middle Cerebral Arteries: Right: No aneurysm, occlusion or significant stenosis. Left: No aneurysm, occlusion or significant stenosis. Anterior Cerebral Arteries: Right: No aneurysm, occlusion or significant stenosis. Left: No aneurysm, occlusion or significant stenosis. Posterior cerebral Arteries: Right: No aneurysm, occlusion or significant stenosis. Left: No aneurysm, occlusion or significant stenosis. Vertebral Arteries: Right: No aneurysm, occlusion or significant stenosis. Left: No aneurysm, occlusion or significant stenosis. Basilar Artery: No aneurysm, occlusion or significant stenosis. CTA Neck W: Common Carotid: Right: No dissection, occlusion or significant stenosis. Left: Calcification at the bulb. No dissection, occlusion or significant stenosis. External Carotid: Right: No dissection, occlusion or significant stenosis. Left: No dissection, occlusion or significant stenosis. Internal Carotid: Right: No dissection, occlusion or significant stenosis. Left: No dissection, occlusion or significant stenosis. Vertebral Artery: Right: No dissection, occlusion or significant stenosis. Left: No dissection, occlusion or significant stenosis. Lung Apices: Bilateral pulmonary emboli are visible in right upper lobe and left lower lobe branches. Calcified granuloma right upper lobe. Bones: No acute abnormality. Degenerative changes in the cervical spine. Soft Tissues: Normal. IMPRESSION: 1. CTA brain: Normal CTA examination of the [place]. 2. Head CT: No acute abnormality. 3. CTA neck: Calcification at the left common carotid bulb. No evidence of occlusion, significant st enosis or dissection. 4. Bilateral pulmonary emboli are identified. The findings were called to Dr. Saint Arriola of the emergency department. RADIATION DOSE DELIVERED: 2,185.84mGy.cm Total DLP DATA REPOSITORY: All CT scans at this facility are submitted to the National Radiology Data Registry (NRDR) Dose Index Registry (DIR) with the [employer] (ACR). RADIATION OPTIMIZATION: All CT scans at this facility use at least one of these dose optimization te chniques: automated exposure control; mA and/or kV adjustment per patient size (includes targeted exa ms where dose is matched to clinical indication); or iterative reconstruction.
--- NOTE | 2025-01-01 09:46 | DI.RAD_ITS ---
Exam(s) XR CHEST 2V PA LATERAL EXAM: XR CHEST 2V PA LATERAL CLINICAL HISTORY: poor balance, dizzy, cough fever TECHNIQUE: 2D digital imaging was performed. Two views. COMPARISON: No exams were available for comparison FINDINGS: HEART: Normal size. Aorta: Not dilated. PULMONARY VASCULATURE: Normal. MEDIASTINUM: Unremarkable. LUNGS: Clear. PLEURAL SPACE: No pleural effusion or pneumothorax. BONE:Unremarkable for age. SOFT TISSUES: Unremarkable. IMPRESSION: No acute abnormality. DATA REPOSITORY: RADIATION DOSE DELIVERED:
[2025-01-01 09:50] LABS: Troponin I 33 ng/L (<or=76)
[2025-01-01 10:20] LABS: Lab Add On Test DONE
[2025-01-01] MEDS: Normal Saline - Diluent 50 ML VIAL IJ (10:32)
[2025-01-01] MEDS: Omnipaque 350 MG/ML 100 ML BTL IJ (10:33)
[2025-01-01] MEDS: Apixaban 5 MG TAB 10 MG PO ×2 (10:33→19:57)
[2025-01-01 10:46] LABS: NT-proBNP 1316 pg/mL (<300)
[2025-01-01 10:58] LABS: Bilirubin Negative (Negative); Blood Trace-lysed (Negative); Clarity Clear (Clear); Glucose Negative (Negative); Ketones Negative (Negative); Leukocyte Esterase Negative (Negative); Nitrite Negative (Negative); Specific Gravity <= 1.005 (1.005-1.025); Urobilinogen 0.2 mg/dL (Up to 0.2); pH 5.5 (5-8)
[2025-01-01 11:06] LABS: Bacteria Moderate HPF (Negative); C & S Indicated? No; Casts Negative LPF (Negative); Crystals Negative HPF (Negative); Epithelial Cells Few HPF (Negative); Mucus Trace (Negative); WBC 0-2 HPF (0-5)
--- NOTE | 2025-01-01 13:02 | W.PM.HP.N ---
Date of service: 01/01/25 Time of Service: 13:04 Assessment and Plan Assessment and plan (1) Pulmonary embolism, bilateral: Status: Acute Assessment and plan: Incidental finding - Started on apixaban 10 mg BID x 7 days then 5 mg BID (2) GIGI (acute kidney injury): Status: Acute Assessment and plan: Creatinine 1.9 500 ml bolus in ED - NS @ 125 ml/h I&O Monitor (3) Dizzy: Status: Acute Assessment and plan: Head CT neg PT Orthostatic vs (4) Thrombocytopenia: Status: Chronic Assessment and plan: No bruising, petechiae (small red spots on skin), prolonged bleeding from cuts, or spontaneous bleeding (nosebleeds, gum bleeding) Does have fever, no jaundice, is fatigued, no other signs of infection Platelets 68 (150-160 in the past) Monitor (5) Hyperglycemia: Status: Acute Assessment and plan: glucose 289 - SSI FS ACHS Monitor (6) High transaminase levels: Status: Acute Assessment and plan: The patient?s ALT (101 U/L) and AST (67 U/L) are elevated, which suggests liver cell injury. The ratio of AST to ALT (AST/ALT ratio) is often used to help identify the underlying cause of transaminase elevation. In this case: ALT is more specific to liver injury (particularly hepatocellular injury), while AST is less specific and can be elevated in a variety of conditions (including muscle injury). The AST/ALT ratio is approximately 0.66, which generally suggests hepatic causes rather than muscle injury (as AST typically rises more significantly in muscle-related issues). Monitor History of Present Illness History of Present Illness Chief Complaint: Dizziness Narrative: This is an 84-year-old male with a past medical history of type 2 diabetes, hypertension, hyperlipidemia, peripheral neuropathy, and recent right second toe partial amputation ([facility], 12/14/2024), presenting with one week of dizziness and poor balance. The dizziness is described as lightheadedness and is specifically associated with ambulation. He reports feeling as if he is falling to the left when walking. He does not experience dizziness while sitting or lying down, and positional changes do not exacerbate his symptoms. He denies vertigo, falls, head trauma, visual changes, headache, nausea, or vomiting. He reports baseline peripheral neuropathy without worsening or new numbness/tingling. He also notes a nonproductive cough for three weeks, described as a ?tickle in the chest,? without associated fever, chest pain, dyspnea, or sputum production. However, he was found to be febrile to 38.7?C in the ED and endorses intermittent night sweats recently. No urinary or GI symptoms were noted. Postoperatively, he was prescribed a 5-day course of Bactrim, which he took only partially. He wonders if this may have contributed to his current symptoms. He reports a generalized sensation of weakness but no focal or unilateral weakness. His surgical site on the right foot appears to be healing well with no signs of infection. He is scheduled for suture removal later this week. Labs in the ED WBC 3.75, hemoglobin 13.7, platelets 68 unremarkable baseline usually 160 sodium 131, BUN 24, creatinine 1.9 baseline 21 glucose 289 calcium 8.1 AST 101 ALT 67 alk phos 131 proBNP 1316 albumin 3.0 TSH 2.01. Urine sodium this morning 142. 1. CTA brain: Normal CTA examination of the [place]. 2. Head CT: No acute abnormality. 3. CTA neck: Calcification at the left common carotid bulb. No evidence of occlusion, significant stenosis or dissection. 4. Bilateral pulmonary emboli are identified. Chest xray: No acute abnormality. Patient is admitted to the medical floor for further testing and treatment. Review of Systems All systems reviewed & are unremarkable except as noted in HPI and below PFSH All Active Problems (Updated 01/01/25 @ 16:58 by Babs Lira NP) Dizzy (Acute) Hyperglycemia (Acute) GIGI (acute kidney injury) (Acute) High transaminase levels (Acute) Thrombocytopenia (Chronic) Pulmonary embolism, bilateral (Acute) Peripheral neuropathy (Acute) Hyperlipidemia (Acute) BPH (benign prostatic hyperplasia) (Chronic) Erectile dysfunction (Acute) Onychomycosis (Acute) Hammertoe of right foot (Acute) Paresthesia (Acute) Diabetes type 2, controlled (Acute) Skin lesion (Acute) Essential hypertension (Acute) Traumatic tear of left rotator cuff (Acute ~10/2020) Surgical History Tonsillectomy and adenoidectomy Family History Mother Breast cancer Diabetes Son Diabetes Social History (Updated 11/23/24 @ 11:28 by Shireen Carolina) Smoking/Tobacco Use Status: Former Tobacco Use tobacco type: cigarettes Quit Date: 08/15/1967 Tobacco: How many years used: 5 Quit status: quit date established Second Hand Exposure: No Smoking risk assessment performed?: Yes Alcohol Intake: never Drug use: Never Substance use type: does not use Counseling given: Yes Adopted: No Caregiver/Support person: No Household members: spouse Housing: house Number of Children: 2 number of grandchildren: 4 Communication Needs: None Do you need help understanding health information?: Never current occupation: retired Sexually active: No Do you think of yourself as: straight/heterosexual Current gender identity: male What is your relationship status?: How often do you talk on the phone with friends or family?: three or more times per week How often do you get together with friends or relatives?: three or more times per week How often do you attend buddhism or buddhist services?: 4 or more times per year Do you belong to any clubs or organized social groups?: yes Panel score (0-1 are the most socially isolated patients): 4 Terri/Jain: Denominational Special terri needs: No Seatbelt use: always Helmet use: No Drive intox 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 Firearms in home: Yes Firearms unloaded and locked: Yes Do you feel safe at home: Yes Do you feel safe in your relationship?: Yes Would you like helpful sources: No Meds Allergies and Home Medications Allergies Allergy/AdvReac Type Severity Reaction Status Date / Time No Known Allergies Allergy Unverified 01/01/25 07:58 Home Medications ?Medication ?Instructions ?Recorded ?Confirmed ?Type Reliv Vitamin Packs 3 cap PO DAILY 09/07/16 01/01/25 History metformin 500 mg tablet,extended 1,000 mg (2 x 500 mg) PO BID #360 01/12/24 01/01/25 Rx release 24 hr tabs apixaban 5 mg tablet 5 mg PO BID #60 tabs 01/01/25 Rx sulfamethoxazole 500 mg tablet mg PO profolactic 01/01/25 History Exam Narrative Exam Narrative: GEN: awake, alert, oriented 3. Pleasant, well groomed, interactive. HEAD: Normocephalic, atraumatic ENT: Mucous membranes moist, oropharynx unremarkable, External ear exam unremarkable EYES: PERRL, EOMI EXT: Full ROM, right distal anterior thigh with a transverse oriented laceration with sutures in place, there is dependent erythema and edema. Unable to express purulent material. Neuro: Grossly normal neurologic exam, conversant, interactive. Psych: Speech fluent, thoughts congruent, affect normal Results Labs 01/01/25 08:20 01/01/25 08:20 Labs: Laboratory Results - last 24 hr 01/01/25 01/01/25 01/01/25 08:20 09:15 10:01 WBC 3.75 L RBC 4.49 Hgb 13.7 Hct 40.2 MCV 90 MCH 30.5 MCHC 34.1 RDW 13.3 Plt Count 68 L MPV 10.7 Immature Gran % 0.3 Neutrophils % 85.9 Lymphocytes % 6.4 Monocytes % 6.4 Eosinophils % 0.5 Basophils % 0.5 Nucleated RBC % 0.0 Absolute Neutrophils 3.22 Absolute Lymphocytes 0.24 L Absolute Monocytes 0.24 Absolute Eosinophils 0.02 Absolute Basophils 0.02 RBC Morphology Normal PT 11.2 H INR 1.1 Sodium 131 L Potassium 4.6 Chloride 97 L Carbon Dioxide 24.2 Anion Gap 9.8 BUN 24 H Creatinine 1.9 H Est GFR (CKD-EPI 2020) 34.79 Glucose 289 H Calcium 8.1 L Magnesium 1.9 Total Bilirubin 0.6 AST 101 H ALT 67 H Alkaline Phosphatase 121 H Troponin I 31 33 NT-Pro-B Natriuret Pep 1316 H Total Protein 6.6 Albumin 3.0 L TSH 2.01 Urine Color Urine Clarity Urine pH Ur Specific [place] Urine Protein Urine Ketones Urine Blood Urine Nitrite Urine Bilirubin Urine Urobilinogen Ur Leukocyte Esterase Urine RBC Urine WBC Ur Epithelial Cells Urine Crystals Urine Bacteria Urine Casts Urine Mucus Ur Culture Indicated? Urine Glucose Add-On Test Request DONE 01/01/25 01/01/25 10:46 10:59 WBC RBC Hgb Hct MCV MCH MCHC RDW Plt Count MPV Immature Gran % Neutrophils % Lymphocytes % Monocytes % Eosinophils % Basophils % Nucleated RBC % Absolute Neutrophils Absolute Lymphocytes Absolute Monocytes Absolute Eosinophils Absolute Basophils RBC Morphology PT INR Sodium Potassium Chloride Carbon Dioxide Anion Gap BUN Creatinine Est GFR (CKD-EPI 2020) Glucose Calcium Magnesium Total Bilirubin AST ALT Alkaline Phosphatase Troponin I Cancelled NT-Pro-B Natriuret Pep Total Protein Albumin TSH Urine Color Yellow Urine Clarity Clear Urine pH 5.5 Ur Specific [place] <= 1.005 Urine Protein 100 H Urine Ketones Negative Urine Blood Trace-lysed H Urine Nitrite Negative Urine Bilirubin Negative Urine Urobilinogen 0.2 Ur Leukocyte Esterase Negative Urine RBC 3-5 H Urine WBC 0-2 Ur Epithelial Cells Few Urine Crystals Negative Urine Bacteria Moderate Urine Casts Negative Urine Mucus Trace Ur Culture Indicated? No Urine Glucose Negative Add-On Test Request Last Vital Signs Temp 36.7 C 01/01/25 12:06 Pulse 63 01/01/25 12:06 Resp 18 01/01/25 12:06 BP 101/57 L 01/01/25 12:06 Pulse Ox 95 01/01/25 12:06 Time Spent Time spent with Patient: <40 minutes Time was spent: preparing to see the patient(eg.review tests), ordering medications,tests, procedures, referring, communicating with other health critical care nurse, indepentently interpreting results, counseling the patient and care coordination
[2025-01-01 14:04] LABS: Lab Add On Test DONE
[2025-01-01 14:18] LABS: C-Reactive Protein 9.74 mg/dL (<or=0.5)
--- NOTE | 2025-01-01 15:55 | W.PC.ACHO ---
Registration Status: Primary Language: Preferred Language: ED Information & Data Chief Complaint Dizzy/Sync 01/01/25 08:00 Triage Note pt reports that he has been 01/01/25 07:35 feelingdizzy for the last 1 week. he adds that he just had a toe amputate # 2 toe on right foot ( three weeks ago) at [facility] he stopped his antibiotics 2 days ago because he felt this was the cause of feeling bad (Last Reviewed 11/21/24 @ 11:25 by Stu Lewis NP) Tonsillectomy and adenoidectomy Most Recent Vital Signs Temperature 37.1 C 01/01/25 15:52 Temperature Source Temporal Artery Scan 01/01/25 15:52 Pulse 81 01/01/25 15:52 Pulse Rhythm Regular 01/01/25 12:06 Respiratory Rate 16 01/01/25 15:52 Respiratory Effort Normal 01/01/25 12:06 Respiratory Depth Normal 01/01/25 12:06 Respiratory Pattern Normal 01/01/25 12:06 Blood Pressure 133/69 01/01/25 15:52 Blood Pressure Mean 90 01/01/25 15:52 Blood Pressure Position Supine 01/01/25 07:35 Pulse Oximetry 96 01/01/25 15:52 Oxygen Delivery Method Room Air 01/01/25 15:52 Oxygen Flow Rate 0 01/01/25 15:52 Pain Level 0 01/01/25 15:52 Allergies No Known Allergies Allergy (Unverified 01/01/25 07:58) Precautions Isolation Contact precaution 01/01/25 07:48 Active Medications Generic Name Dose Route Start Last Admin Trade Name Brissa PRN Reason Stop Dose Admin Sodium Chloride 0 ml 01/01/25 08:30 01/01/25 13:23 Normal Saline Flush 10 Ml Syr IVP Not Given BID ARTHUR IV IV Catheter Type [Right Saline Lock Forearm] IV Catheter Gauge [Right 20 Forearm] Diet Orders Category Date Time Status Heart Healthy Eating [DIET] Nutrition 01/01/25 Lunch Active Diagnostics 01/01/25 01/01/25 01/01/25 Range/Units 10:59 10:46 10:01 WBC (4.4-10.8) 10^3/uL RBC (4.36-5.78) 10^6/uL Hgb (13.5-17.5) g/dL Hct (40.0-50.0) % MCV (80-95) fL MCH (27.0-33.0) pg MCHC (32.0-36.0) % RDW (11.8-14.1) % Plt Count (130-400) 10^3/uL MPV (8.0-11.0) fL Immature Gran % % Neutrophils % % Lymphocytes % % Monocytes % % Eosinophils % % Basophils % % Nucleated RBC % (0.0-0.3) % Absolute Neutrophils (1.2-6.7) 10^3/uL Absolute Lymphocytes (1.2-3.4) 10^3/uL Absolute Monocytes (0.1-0.8) 10^3/uL Absolute Eosinophils (0.0-0.7) 10^3/uL Absolute Basophils (0.0-0.2) 10^3/uL RBC Morphology PT (9.1-11.1) sec INR (0.9-1.1) Sodium (136-145) mmol/L Potassium (3.5-5.1) mmol/L Chloride (98-107) mmol/L Carbon Dioxide (21.0-32.0) mmol/L Anion Gap (3-11) mmol/L BUN (7-18) mg/dL Creatinine (0.70-1.30) mg/dL Est GFR (CKD-EPI 2020) (mL/min/1.73m2) Glucose (74-106) mg/dL Calcium (8.5-10.1) mg/dL Magnesium (1.8-2.4) mg/dL Total Bilirubin (0.2-1.0) mg/dL AST (15-37) U/L ALT (16-63) U/L Alkaline Phosphatase (46-116) U/L Troponin I Cancelled (<or=76) ng/L C-Reactive Protein (<or=0.5) mg/dL NT-Pro-B Natriuret Pep (<300) pg/mL Total Protein (6.4-8.2) g/dL Albumin (3.4-5.0) g/dL TSH (0.36-3.74) uIU/mL Urine Color Yellow (Yellow) Urine Clarity Clear (Clear) Urine pH 5.5 (5-8) Ur Specific [place] <= 1.005 (1.005-1.025) Urine Protein 100 H (Neg-Trace) mg/dL Urine Ketones Negative (Negative) mg/dL Urine Blood Trace-lysed H (Negative) Urine Nitrite Negative (Negative) Urine Bilirubin Negative (Negative) Urine Urobilinogen 0.2 (Up to 0.2) mg/dL Ur Leukocyte Esterase Negative (Negative) Urine RBC 3-5 H (0-2) HPF Urine WBC 0-2 (0-5) HPF Ur Epithelial Cells Few (Negative) HPF Urine Crystals Negative (Negative) HPF Urine Bacteria Moderate (Negative) HPF Urine Casts Negative (Negative) LPF Urine Mucus Trace (Negative) Ur Culture Indicated? No Urine Glucose Negative (Negative) mg/dL Add-On Test Request DONE 01/01/25 01/01/25 Range/Units 09:15 08:20 WBC 3.75 L (4.4-10.8) 10^3/uL RBC 4.49 (4.36-5.78) 10^6/uL Hgb 13.7 (13.5-17.5) g/dL Hct 40.2 (40.0-50.0) % MCV 90 (80-95) fL MCH 30.5 (27.0-33.0) pg MCHC 34.1 (32.0-36.0) % RDW 13.3 (11.8-14.1) % Plt Count 68 L (130-400) 10^3/uL MPV 10.7 (8.0-11.0) fL Immature Gran % 0.3 % Neutrophils % 85.9 % Lymphocytes % 6.4 % Monocytes % 6.4 % Eosinophils % 0.5 % Basophils % 0.5 % Nucleated RBC % 0.0 (0.0-0.3) % Absolute Neutrophils 3.22 (1.2-6.7) 10^3/uL Absolute Lymphocytes 0.24 L (1.2-3.4) 10^3/uL Absolute Monocytes 0.24 (0.1-0.8) 10^3/uL Absolute Eosinophils 0.02 (0.0-0.7) 10^3/uL Absolute Basophils 0.02 (0.0-0.2) 10^3/uL RBC Morphology Normal PT 11.2 H (9.1-11.1) sec INR 1.1 (0.9-1.1) Sodium 131 L (136-145) mmol/L Potassium 4.6 (3.5-5.1) mmol/L Chloride 97 L (98-107) mmol/L Carbon Dioxide 24.2 (21.0-32.0) mmol/L Anion Gap 9.8 (3-11) mmol/L BUN 24 H (7-18) mg/dL Creatinine 1.9 H (0.70-1.30) mg/dL Est GFR (CKD-EPI 2020) 34.79 (mL/min/1.73m2) Glucose 289 H (74-106) mg/dL Calcium 8.1 L (8.5-10.1) mg/dL Magnesium 1.9 (1.8-2.4) mg/dL Total Bilirubin 0.6 (0.2-1.0) mg/dL AST 101 H (15-37) U/L ALT 67 H (16-63) U/L Alkaline Phosphatase 121 H (46-116) U/L Troponin I 33 31 (<or=76) ng/L C-Reactive Protein 9.74 H (<or=0.5) mg/dL NT-Pro-B Natriuret Pep 1316 H (<300) pg/mL Total Protein 6.6 (6.4-8.2) g/dL Albumin 3.0 L (3.4-5.0) g/dL TSH 2.01 (0.36-3.74) uIU/mL Urine Color (Yellow) Urine Clarity (Clear) Urine pH (5-8) Ur Specific [place] (1.005-1.025) Urine Protein (Neg-Trace) mg/dL Urine Ketones (Negative) mg/dL Urine Blood (Negative) Urine Nitrite (Negative) Urine Bilirubin (Negative) Urine Urobilinogen (Up to 0.2) mg/dL Ur Leukocyte Esterase (Negative) Urine RBC (0-2) HPF Urine WBC (0-5) HPF Ur Epithelial Cells (Negative) HPF Urine Crystals (Negative) HPF Urine Bacteria (Negative) HPF Urine Casts (Negative) LPF Urine Mucus (Negative) Ur Culture Indicated? Urine Glucose (Negative) mg/dL Add-On Test Request DONE Intake and Output - 24 Hour Total 01/01/25 07:30 thru 01/01/25 10:34 Intake Total 500 Balance 500 Weight 74.389 kg Intake: IV 500 Falls Risk Assessment History of Falls No History 01/01/25 12:06 Contributing Factors Unstable,Impairments 01/01/25 12:06 Ambulatory Aids Independent 01/01/25 12:06 Tubes/Lines With any additional score 01/01/25 12:06 Gait Evaluation W/any additional score 01/01/25 12:06 Cognition No cognitive impairment 01/01/25 12:06 Fall Total Score 46 01/01/25 12:06 Level of Risk Moderate Risk 01/01/25 12:06 v v v v v v v v v Sending and/or Receiving Nurses: Please use comment section below to note any information pertinent to the patient hand-off not included above. Information / Comments: pt arrives to floor via wheelchair, admitted to 208 and settled. Report received from: TORI Cool
[2025-01-01] MEDS: cefTRIAXone 1 GM/50 ML BAG IVPB (19:57)
[2025-01-01] MEDS: Normal Saline Flush 10 ML SYR IVP (20:02)
[2025-01-01] MEDS: Acetaminophen 325 MG TAB 650 MG PO (20:28)
[2025-01-01] MEDS: Insulin Aspart 300 UNITS/3 ML PEN SC (22:30)
[2025-01-02 03:37] VITALS: TEMP 37.2
[2025-01-02 06:58] LABS: Abs Immature Grans 0.01 10^3/uL (0.0-0.06); Absolute Basophil Count 0.03 10^3/uL (0.0-0.2); Absolute Eosinophil Count 0.18 10^3/uL (0.0-0.7); Absolute Lymphocyte Count 0.49 10^3/uL (1.2-3.4); Absolute Monocyte Count 0.21 10^3/uL (0.1-0.8); Absolute Neutrophil Count 3.25 10^3/uL (1.2-6.7); Basophils % 0.7 %; Eosinophils % 4.3 %; HCT 40.3 % (40.0-50.0); HGB 13.6 g/dL (13.5-17.5); Immature Grans % 0.2 %; Lymphocytes % 11.8 %; MCH 30.4 pg (27.0-33.0); MCHC 33.7 % (32.0-36.0); MCV 90 fL (80-95); MPV 11.3 fL (8.0-11.0); RBC 4.47 10^6/uL (4.36-5.78); RDW 13.3 % (11.8-14.1); RDW-SD 44.2 fL; WBC 4.17 10^3/uL (4.4-10.8)
[2025-01-02 07:16] LABS: Anion Gap 4.4 mmol/L (3-11); BUN 23 mg/dL (7-18); CO2 28.6 mmol/L (21.0-32.0); CREATININE 1.4 mg/dL (0.70-1.30); Calcium 8.3 mg/dL (8.5-10.1); Chloride 100 mmol/L (98-107); Estimated GFR 50.18 (mL/min/1.73m2); Glucose 199 mg/dL (74-106); Magnesium 2.4 mg/dL (1.8-2.4); Potassium 4.6 mmol/L (3.5-5.1); Sodium 133 mmol/L (136-145)
[2025-01-02 07:18] VITALS: BP 116/59; PULSE 60; RESP 16; TEMP 36.5; O2SAT 95
[2025-01-02 07:27] LABS: Platelet Count 67 10^3/uL (130-400)
[2025-01-02 07:28] LABS: Diff Comment PLT Morph Reviewed; RBC Morphology Normal
[2025-01-02] MEDS: Normal Saline Flush 10 ML SYR IVP (08:26)
[2025-01-02] MEDS: Insulin Aspart 300 UNITS/3 ML PEN SC ×2 (08:26→12:26)
[2025-01-02] MEDS: Apixaban 5 MG TAB 10 MG PO (08:27)
--- NOTE | 2025-01-02 08:41 | INITIAL_ITS ---
Date of service: 01/16/25 Time of Service: 14:42 Care Management Initial Assmt Initial Assessment Reason for Hospitalization: Bilateral pulmonary embolism Functional Status/Living Situation Patient Presentation: Chioma was lying in bed, and his son and daughter in law had recently left from visiting, when CM arrived. Chioma presented to the ED after experiencing dizziness described as lightheadedness, associated with poor balance that occurred when he stood up and tried to walk. He is currently living in [place] in his home with his , Anni. 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 During this admission, Chioma was started on Eliquis. A referral to the COA was sent to aid in obtaining further insurance; CM coordinated with his PCP, to ensure assistance in his enrollment in the 'Eliquis Cost Reduction program'. The first 30 days of Eliquis will be covered, as CM sent a free trail to the pharmacy. Patient is agreeable to this plan, and is hopeful the cost reduction program is beneficial to him. Town of Residence: [place] Resides with: Spouse Significant Other/Family: Local ( lives in home and he has a son and daughter in law living in [place]) Natural Supports: Friends, his chidden and his . 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 ) Instrumental Activities of Daily Living (ADLs): Independent Activities/Hobbies/SocialSupport: Enjoys exercising Medications Medication Management: No Issues/Barriers identified (Is newly started on Eliquis. ) Advance Directives Advance Directives: Do you have an Advance Directive: Y 06/08/17 11:[address] File [address] [facility]: Y 06/08/17 11:39 Date Asked 01/01/25 01/01/25 11:26 AD Date Reviewed 01/01/25 01/01/25 07:[address] [facility] COLST Date Scanned Code Status Resuscitation Status Full Code Portal Pt does not currently have a portal and education provided: Yes Insurance Coverage/Financial Issues Insurance: BC/BS Financial Issues: States none at this time Care Team Visit Care Team Role Provider Type Babs Lira NP MD [facility] STAFF PHYSICIAN Stu Lewis NP Primary Care Provider NURSE PRACTITIONER Anni Feliciano RDN, CDCES Other Providers SERVICE LINE LAYER Arash Pineda Other Providers OTHER Angel Donovan RDN Other Providers SERVICE LINE LAYER Muna Villalobos MD Emergency Provider [facility] STAFF PHYSICIAN Chente Lyle MD Admit Provider [facility] STAFF PHYSICIAN Attending Provider Discharge Potential Discharge Needs: PCP F/U Appt Anticipated Barriers to Discharge: None Identified Patient/Family Education Needs: Review discharge instructions, discuss Ask Me Three Transportation: Private vehicle Plan: Chioma will be discharged home today with new outpatient PT. He will follow up with his community providers who will aid him in a cost reduction program for K[facility] and discharge plan of care. Chioma will transport via private vehicle by himself. Social Determinants of Health Screening Social Determinants of health last assessed in clinic: 01/02/25 Will the Patient Participate in the Screening?: Yes Do you worry about having a steady place to live?: no Problems where you live: no known problems In the past 12 months, have you had to go without electric, gas, oil or water in your home?: no 1. Within the past 12 months, we worried whether our food would run out before we got money to buy more.: Never true 2. Within the past 12 months, the food we bought just didn't last and we didn't have money to get more.: Never true Has lack of transportation kept you from medical appointments or from doing things needed for daily living?: no Has anyone in your life made you feel unsafe or unsupported?: no How hard is it for you to pay for the very basics like food, housing, medical care, and heating? Would you say it is:: Not hard at all Do you want help finding or keeping work or a job?: I do not need or want help If for any reason you need help with day-to-day activities such as bathing, preparing meals, shopping, managing finances, etc., do you get the help you need?: I don?t need any help How often do you feel lonely or isolated from those around you?: Never Do you speak a language other than Indonesian at home?: No Does the patient want assistance with any of the above?: No PFSH All Active Problems (Updated 01/01/25 @ 16:58 by Babs Lira NP) Dizzy (Acute) Hyperglycemia (Acute) GIGI (acute kidney injury) (Acute) High transaminase levels (Acute) Thrombocytopenia (Chronic) Pulmonary embolism, bilateral (Acute) Peripheral neuropathy (Acute) Hyperlipidemia (Acute) BPH (benign prostatic hyperplasia) (Chronic) Erectile dysfunction (Acute) Onychomycosis (Acute) Hammertoe of right foot (Acute) Paresthesia (Acute) Diabetes type 2, controlled (Acute) Skin lesion (Acute) Essential hypertension (Acute) Traumatic tear of left rotator cuff (Acute ~10/2020) Surgical History Tonsillectomy and adenoidectomy Family History Mother Breast cancer Diabetes Son Diabetes Social History (Updated 11/23/24 @ 11:28 by Shireen Carolina) Smoking/Tobacco Use Status: Former Tobacco Use tobacco type: cigarettes Quit Date: 08/15/1967 Tobacco: How many years used: 5 Quit status: quit date established Second Hand Exposure: No Smoking risk assessment performed?: Yes Alcohol Intake: never Drug use: Never Substance use type: does not use Counseling given: Yes Adopted: No Caregiver/Support person: No Household members: spouse Housing: house Number of Children: 2 number of grandchildren: 4 Communication Needs: None Do you need help understanding health information?: Never current occupation: retired Sexually active: No Do you think of yourself as: straight/heterosexual Current gender identity: male What is your relationship status?: How often do you talk on the phone with friends or family?: three or more times per week How often do you get together with friends or relatives?: three or more times per week How often do you attend jehovah's witness or oriental orthodox services?: 4 or more times per year Do you belong to any clubs or organized social groups?: yes Panel score (0-1 are the most socially isolated patients): 4 Terri/Synagogue: Islam Special terri needs: No Seatbelt use: always Helmet use: No Drive intox or ride w/intox superintendent drivers: No Firearms in home: Yes Firearms unloaded and locked: Yes Do you feel safe at home: Yes Do you feel safe in your relationship?: Yes Would you like helpful sources: No Readmission Within the Past 30 Days Yes or No: No
--- NOTE | 2025-01-02 10:18 | PT.INIE ---
PT Notes Visit Reasons: Bilateral pulmonary embolism Physical Therapy Inpatient Initial Evaluation Date: 01/02/2025 Referring Doctor: Babs Lira NP PT Orders: PT CONSULT: PT evaluation and treatment Precautions: Fall risk standard Patient Profile/Admitting Diagnosis: Patient is 84-year-old male presented to the ED with dizziness and decreased balance with ambulation patient noted cough x 3 weeks since his hospitalization at the beginning of December for second toe amp at [facility]. Patient diagnosed with bilateral large PE to the level of main pulmonary artery. Patient started on Eliquis. PMHX: Dizzy (Acute) Hyperglycemia (Acute) GIGI (acute kidney injury) (Acute) High transaminase levels (Acute) Thrombocytopenia (Chronic) Pulmonary embolism, bilateral (Acute) Peripheral neuropathy (Acute) Hyperlipidemia (Acute) BPH (benign prostatic hyperplasia) (Chronic) Erectile dysfunction (Acute) Onychomycosis (Acute) Hammertoe of right foot (Acute) Paresthesia (Acute) Diabetes type 2, controlled (Acute) Skin lesion (Acute) Essential hypertension (Acute) Traumatic tear of left rotator cuff (Acute ~10/2020) Surgical History Tonsillectomy and adenoidectomy Social History/Home Situation: Patient resides in single-family home with his 12 steps to enter through garage and basement and flight of stairs to bedroom. Patient independent ambulation ADLs, home management, finances, medication management. 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 Equipment Owned/DME: None Subjective: Patient reports he feels like an 85-year-old man. Patient reports he has neuropathy in his feet. Objective: [] General Observation: Elderly male semireclined in bed with son visiting Mental Status: Alert and oriented x 4, cooperative, agreeable to participate Pain: Denied ROM: [] Right Upper Extremity: WNL Left Upper Extremity: WNL Right Lower Extremity: WNL except dorsiflexion to neutral Left Lower Extremity: WNL except dorsiflexion to neutral Strength: [] Right Upper Extremity: 4/5 except left thumb abduction absent due to injury Left Upper Extremity: 4/5 Right Lower Extremity: Grossly 4/5 Left Lower Extremity: Grossly 4/5 Sensation: Intact to mid calf diminished light touch deep pressure proprioception bilateral feet and ankle Bed Mobility/Transfers: [] Supine to sit independent Sit to stand independent Stand to sit independent Bed to chair independent Gait: Ambulated without assistive device SBA 500 feet with reciprocal pattern occasionally noted sidestep to regain balance. Stairs 10 steps with 1 rail SBA reciprocal pattern Balance: [] Static Sitting: Normal Dynamic Sitting: Normal Static Standing: Good with eyes open, poor with closed Dynamic Standing: Fair plus/good minus; patient with impaired ankle strategies with excessive weight shift on heels Special Tests: 4 STAGE BALANCE TEST: Feet together 28 seconds 1/2 Stance 11 seconds Tandem stance 6 seconds Single leg stance left 7 seconds after assistance to attain position, right 4 seconds after assist to attain position Mobility Limitations Standardized Measure [] [facility] AM-PAC 6 clicks Basic Mobility Inpatient Short Form: [] Raw Score: 23 CMS Score: 11.20% Informed Consent/Education: Patient instructed in purpose of PT consult. Treatment [id number] patient and son provided education on use of shoes with slight heel lift to allow for increased ankle strategies. Patient reports he has been using a rocker-bottom shoe with excessive toe bar which he feels has impaired his balance. Patient educated on ankle stretching to increase dorsiflexion to allow for balance strategies. Patient and son educated on benefits of outpatient PT to work on ankle strengthening range of motion, balance activities to reduce risk for falls and improve functional mobility. Assessment: Patient is 84-year-old male demonstrating impairments in standing balance related to poor ankle and hip strategies for balance recovery. Patient at risk for fall with injury with current need for Eliquis. Patient presents with clinical signs and symptoms consistent with current/admitting diagnoses that have resulted to mobility limitations, gait instability, generalized weakness, and impairment of motor control as demonstrated by the following impairment level findings: 1. Decreased strength to BLE BUE major muscle groups 2. Impaired standing balance 3. Limitation of joint range of motion inB ankle 4. Impaired functional activity tolerance and standing Impairments are contributing to the following functional limitations: 1. Inability to safely ambulate without assistive device 2. Increase completion time for mobility ADL performance 3. Increased fall risk Patient is assessed as a low complexity based on the following: History: 84-year-old male with impairment level findings, functional limitations, and past medical history as indicated above Examination: Demonstrable impairment in strength, balance, and mobility level with underlying impairments and functional limitations as documented above Presentation: stable/evolving Decision Making: low Goals: N/A. PT evaluation and treat x1 secondary to discharge to home Plan of Care/Treatment Plan: N/A. PT evaluation and 1-2 treatment session only for functional mobility training using recommended AD and for HEP instruction. DISCHARGE RECOMMENDATIONS: Home with outpatient PT for balance and strengthening, ankle range of motion/strengthening TREATMENT CODE/TIME: 05745, [id number] Thank you for the opportunity to participate in the care of this patient. Val Feldman, PT [facility]
--- NOTE | 2025-01-02 13:09 | CHAPLAIN ---
Chioma was resting in bed when I visited. He had two friends/family members with him. Chioma is connected to the [facility] and said that Aung, who does pastoral visits from the [facility], has already been here to visit Chioma.
--- NOTE | 2025-01-02 13:43 | DSE_ITS ---
Date of service: 01/02/25 Time of Service: 13:43 DS: Diagnosis Discharge Diagnosis (1) Pulmonary embolism, bilateral: Status: Acute (2) GIGI (acute kidney injury): Status: Acute (3) Dizzy: Status: Acute (4) Thrombocytopenia: Status: Chronic (5) Hyperglycemia: Status: Acute (6) High transaminase levels: Status: Acute Discharge Plan Disposition Patient Disposition: Home Condition: Improving Discharge Details Reason For Visit: Bilateral pulmonary embolism Admit Date/Time: 01/01/25 10:57 Admit Provider: Chente Lyle Attending Provider: Chente Lyle Primary Care Provider: Stu Lewis Hospital Course Hospital Course: Chief Complaint: The patient presented with a one-week history of dizziness and poor balance, which was specifically related to ambulation. He describes a sensation of falling to the left during walking but denies vertigo, falls, visual changes, he adache, nausea, or vomiting. The dizziness was not worsened by positional changes or while lying down. 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 He reported lightheadedness associated with ambulation but denies any focal weakness. A nonproductive cough with a sensation of chest tickling had been ongoing for three weeks without fever, chest pain, or dyspnea, but he did have intermittent night sweats. On presentation, he was febrile (38.7?C). Medical History: * Type 2 Diabetes * Hypertension * Hyperlipidemia * Peripheral Neuropathy * Recent Right Toe Partial Amputation * Benign Prostatic Hyperplasia (BPH) * Erectile Dysfunction * Onychomycosis Social History: * Retired * Former smoker (quit in 1967) * , 2 children, 4 grandchildren * No alcohol or drug use Medications at Admission: * Metformin 500 mg (1,000 mg BID) * Apixaban 5 mg BID * Reliv Vitamin Packs (3 caps daily) Physical Examination: * General: Pleasant, alert, and oriented. * Head: Normocephalic, atraumatic. * ENT: Mucous membranes moist. No abnormalities. * Extremities: Full ROM. Right distal anterior thigh had a laceration with sutures in place. * Neuro: Grossly normal neurologic exam. * Psych: Speech fluent, thoughts congruent. Imaging & Diagnostics: * CTA Brain: Normal [place]. * Head CT: No acute abnormality. * CTA Neck: Calcification at left common carotid bulb but no occlusion, significant stenosis, or dissection. * Chest X-ray: No acute findings. * Bilateral Pulmonary Embolism Identified. Laboratory Results: * WBC: 3.75 * Platelets: 68 * Sodium: 131 * Creatinine: 1.9 * Glucose: 289 * Albumin: 3.0 * AST: 101 * ALT: 67 * NT-proBNP: 1316 * Pulmonary Embolism: The patient was found to have bilateral pulmonary embolism, likely contributing to his symptoms of dizziness and weakness. He was started on apixaban for anticoagulation, and continued monitoring and treatment will be necessary. * Acute Kidney Injury : The patient's elevated creatinine and BUN may reflect GIGI, likely multifactorial (dehydration, pre-renal causes, or sepsis). Close monitoring of renal function is needed. * Hyperglycemia: The patient's blood glucose was elevated (289 mg/dL), likely due to stress and illness. Management with metformin and careful monitoring of blood glucose will be required. * Thrombocytopenia: The patient?s platelet count remains low. Monitoring for bleeding complications will continue. * Elevated Transaminases (AST, ALT): These may be indicative of liver injury or strain, possibly related to medications, infection, or underlying liver disease. * Peripheral Neuropathy: No new concerns or changes in symptoms. Continue baseline management. * Nonproductive Cough: Likely viral or post-infectious in nature. Continue supportive care and monitor for signs of infection, Benzonatate PRN - Augmentin on discharge. * Surgical Site (Right Foot): Healing well without signs of infection. Scheduled for suture removal later this week. Discharge Instructions: * Anticoagulation: Continue apixaban as prescribed for the prevention of further embolic events. 10 mg twice a day for 7 days then 5 mg twice a day - bleeding precautions discussed. * Pain Management: Continue with any prescribed analgesics as needed for discomfort. * Diet: Follow a diabetic-friendly diet and maintain blood glucose monitoring. * Activity: Recommend avoiding strenuous activity until further assessment and stabilization of pulmonary embolism. PT recommends out patient PT; referral sent. * Follow-Up: * Follow-up with primary care provider for pulmonary embolism, ongoing diabetes and kidney management. * Follow-up with surgical team for toe amputation site and suture removal. (Records release signed and med records of this visit sent to [facility]) * Check labs next week - order sent - results to PCP. Disposition: The patient is stable for discharge with the necessary follow-up care and instructions. Home Meds and New Rx's Prescriptions: New apixaban 5 mg tablet 5 mg PO BID Qty: 60 0RF amoxicillin-pot clavulanate 875-125 mg tablet 1 tab PO BID Qty: 10 0RF benzonatate 200 mg capsule 200 mg PO TID PRNQty: 20 0RF Rx Instructions: cough No Action metformin 500 mg tablet extended release 24 hr 1,000 mg PO BID Qty: 360 3RF sulfamethoxazole 500 mg tablet 500 mg PO BID Rx Instructions: 1 tab po bid for five days rx filled on 12/27/24 4 tabs left Reliv Vitamin Packs 3 cap PO DAILY Discharge Instructions Instructions: Cough in adults, Thrombocytosis, Apixaban, Amoxicillin and Clavulanate, Bleeding Precautions, Pulmonary embolism - Discharge instructions Additional Instructions: PSA is pending. Smear is pending. Blood cultures are pending. Take Augmentin twice a day for 5 days. Take Apixaban 10 mg twice a day for 7 days and then 5 mg twice a day until advised to discontinue. Have you blood checked next week (an order has been placed). Take benzonatate for cough as needed. Apixaban (Eliquis): * Dosage: Take 10mg of apixaban twice daily for the first 7 days, then swith to 5 mg twice a day. * Consistency: Take the medication at the same time each day to help you remember. * Administration: Take the medication with or without food. If you miss a dose, take it as soon as you remember, unless it's almost time for your next dose. Do not double the dose to make up for a missed dose. * Do not stop suddenly: Do not stop taking apixaban without consulting your doctor, as it can increase the risk of blood clots. 2. Risk of Bleeding * Monitor for signs of bleeding: * Unusual bruising or bleeding (e.g., nosebleeds, gum bleeding, or blood in your urine or stool) * Unexplained severe headaches, dizziness, or weakness * Blood in sputum or vomit (appearing like coffee grounds) * Unusual or prolonged bleeding from cuts or minor injuries * If you notice any of these signs, contact your healthcare provider immediately or go to the emergency room. * Inform any healthcare provider (including dentists or surgeons) that you are taking apixaban, especially before undergoing any procedures or surgery. 3. Regular Follow-up * Follow-up appointments: You will need regular follow-up with your healthcare provider to monitor your progress and ensure the medication is working effectively. * Lab tests: While apixaban typically does not require routine blood tests like warfarin, your doctor may still monitor kidney function and overall response to the medication. 4. Lifestyle and Activity Recommendations * Stay active, but avoid high-risk activities: Light to moderate activity, such as walking, is encouraged. Avoid activities that could increase your risk of injury or bleeding (e.g., contact sports). 5. Dietary Considerations * No special dietary restrictions with apixaban. However, try to maintain a consistent diet, especially with regard to vitamin K intake, since fluctuations in vitamin K can affect other blood thinners like warfarin (but not apixaban). * Limit alcohol consumption: Alcohol can increase the risk of bleeding, so try to limit your intake and discuss with your provider if you plan to drink regularly. 6. Avoid Certain Medications and Supplements * Avoid NSAIDs: Nonsteroidal anti-inflammatory drugs (e.g., ibuprofen, naproxen) can increase the risk of bleeding. If you need pain relief, discuss alternative medications with your doctor. * Be cautious with [id number] supplements: Some herbal supplements (like Ibis?s Wort or ginseng) and high-dose vitamins can interfere with apixaban. Check with your doctor before starting any new medications or supplements. 7. Emergency Information * Emergency signs: If you experience any of the following, seek immediate medical attention: * Severe headache, vision changes, or dizziness (could be signs of bleeding in the brain) * Chest pain, difficulty breathing, or rapid heartbeat (could be signs of a worsening clot) * Any signs of severe bleeding (as mentioned earlier) * Take Augmentin as Directed * Take with food: Augmentin can cause stomach upset, so it's generally recommended to take it with food. * Don't skip doses: Make sure to complete the entire course of Augmentin, even if you start feeling better before finishing it, to fully clear the infection and prevent resistance. * If you miss a dose, take it as soon as you remember, but do not take two doses at once to make up for a missed dose. Low Platelets - You should follow up with your PCP regarding your low platelet count. An order for recheck next week has been placed. Follow up with physical therapy, out patient for strengthening as recommended by our therapist. Stand Alone Forms: Nursing Discharge Form Referrals: [facility] [Provider Group] (Follow up from in patient visit. PT evaluation and 1-2 treatment session only for functional mobility training using recommended AD and for HEP instruction.) Stu Lewis NP [Primary Care Provider] - 01/16/25 11:20 am (New PE - Apixaban 10 mg BID x 7d then 5 mg BID; platelets are low and concerning, Cr bumped 1. ) Activity:: Activity as Tolerated Equipment/Supplies:: No Equipment Needed Diet:: Ambrocio healthy diabetic Discharge Orders Discharge Orders: Discharge Order (Routine); Ordered 01/02/25 Ordered By: Babs Lira Other Ambulatory Orders: Complete Blood Count w/Diff (Routine) Timeframe: 1 Week Facility: [facility] - Location: Laboratory Outpatient - [facility] Ordered By: Babs Lira Discharge Data Discharge Date/Time-TO BE ENTERED AT DEPARTURE: 01/02/25 15:10 DS: Summary Time Spent with Patient providing and/or coordinating discharge services: Greater than 30 minutes Status at Discharge Functional status at discharge: independent ambulation Overall status at discharge: patient is back to baseline Mental Status: mental status grossly normal Speech and Movement: speech and movement normal Mood: congruent mood Affect: normal affect Quality:SDOH Health Related Social Needs: No Data to Display Exam Narrative Exam Narrative: GEN: awake, alert, oriented 3. Pleasant, well groomed, interactive. HEAD: Normocephalic, atraumatic ENT: Mucous membranes moist, oropharynx unremarkable, External ear exam unremarkable EYES: PERRL, EOMI EXT: Full ROM, right distal anterior thigh with a transverse oriented laceration with sutures in place, there is dependent erythema and edema. Unable to express purulent material. Neuro: Grossly normal neurologic exam, conversant, interactive. Psych: Speech fluent, thoughts congruent, affect normal Psych Mental Status: mental status grossly normal Speech and Movement: speech and movement normal Mood: congruent mood Affect: normal affect DS: Data Vitals/I&O Vitals and I&O: Vital Signs Temperature 36.5 C 01/02/25 07:18 Temperature Source Tympanic 01/02/25 07:18 Pulse 60 01/02/25 07:18 Pulse Rhythm Regular 01/01/25 12:06 Respiratory Rate 16 01/02/25 07:18 Respiratory Effort Normal 01/01/25 12:06 Respiratory Depth Normal 01/01/25 12:06 Respiratory Pattern Normal 01/01/25 12:06 Blood Pressure 116/59 L 01/02/25 07:18 Blood Pressure Mean 78 01/02/25 07:18 Blood Pressure Position Supine 01/01/25 07:35 Pulse Oximetry 95 01/02/25 07:18 Oxygen Delivery Method Room Air 01/02/25 07:18 Oxygen Flow Rate 0 01/02/25 07:18 Pain Level 0 01/02/25 07:18 Intake & Output 01/01/25 01/02/25 01/02/25 23:59 11:59 23:59 Intake Total 460 / 960 440 / 440 Balance 460 / 960 440 / 440 Intake: IV Oral 450 / 450 440 / 440 Other: Comment unmeasured per pt voiding independently Data Completed and Pending Labs on day of discharge: Labs from last 24 hours 01/02/25 06:20: WBC 4.17 L, RBC 4.47, Hgb 13.6, Hct 40.3, MCV 90, MCH 30.4, MCHC 33.7, RDW 13.3, Plt Count 67 L, MPV 11.3 H, Immature Gran % 0.2, Neutrophils % 78.0, Lymphocytes % 11.8, Monocytes % 5.0, Eosinophils % 4.3, Basophils % 0.7, Nucleated RBC % 0.0, Absolute Neutrophils 3.25, Absolute Lymphocytes 0.49 L, Absolute Monocytes 0.21, Absolute Eosinophils 0.18, Absolute Basophils 0.03, RBC Morphology Normal, Sodium 133 L, Potassium 4.6, Chloride 100, Carbon Dioxide 28.6, Anion Gap 4.4, BUN 23 H, Creatinine 1.4 H, Est GFR (CKD-EPI 2020) 50.18, Glucose 199 H, Calcium 8.3 L, Magnesium 2.4, PSA Screen Pending, Pathology Consult Spec Pending 01/01/25 09:15: C-Reactive Protein 9.74 H, Add-On Test Request DONE 01/01/25 20:15 Blood Blood Culture - Pending 01/01/25 20:15 Blood Blood Culture - Pending Preliminary micro results at discharge 01/01/25 20:15 Blood Blood Culture - Pending 01/01/25 20:15 Blood Blood Culture - Pending [facility] All Active Problems (Updated 01/01/25 @ 16:58 by Babs Lira NP) Dizzy (Acute) Hyperglycemia (Acute) GIGI (acute kidney injury) (Acute) High transaminase levels (Acute) Thrombocytopenia (Chronic) Pulmonary embolism, bilateral (Acute) Peripheral neuropathy (Acute) Hyperlipidemia (Acute) BPH (benign prostatic hyperplasia) (Chronic) Erectile dysfunction (Acute) Onychomycosis (Acute) Hammertoe of right foot (Acute) Paresthesia (Acute) Diabetes type 2, controlled (Acute) Skin lesion (Acute) Essential hypertension (Acute) Traumatic tear of left rotator cuff (Acute ~10/2020) Surgical History Tonsillectomy and adenoidectomy Family History Mother Breast cancer Diabetes Son Diabetes Social History (Updated 11/23/24 @ 11:28 by Shireen Carolina) Smoking/Tobacco Use Status: Former Tobacco Use tobacco type: cigarettes Quit Date: 08/15/1967 Tobacco: How many years used: 5 Quit status: quit date established Second Hand Exposure: No Smoking risk assessment performed?: Yes Alcohol Intake: never Drug use: Never Substance use type: does not use Counseling given: Yes Adopted: No Caregiver/Support person: No Household members: spouse Housing: house Number of Children: 2 number of grandchildren: 4 Communication Needs: None Do you need help understanding health information?: Never current occupation: retired Sexually active: No Do you think of yourself as: straight/heterosexual Current gender identity: male What is your relationship status?: How often do you talk on the phone with friends or family?: three or more times per week How often do you get together with friends or relatives?: three or more times per week How often do you attend judaism or congregation services?: 4 or more times per year Do you belong to any clubs or organized social groups?: yes Panel score (0-1 are the most socially isolated patients): 4 Terri/Christian: Restorationist Special terri needs: No Seatbelt use: always Helmet use: No Drive intox or ride w/intox industrial truck driver: No Firearms in home: Yes Firearms unloaded and locked: Yes Do you feel safe at home: Yes Do you feel safe in your relationship?: Yes Would you like helpful sources: No Time Spent with Patient Time Spent with Patient: 45-69 minutes Time was spent: preparing to see the patient(eg.review tests), ordering medications,tests, procedures, referring, communicating with other health healthcare advisory services manager, indepentently interpreting results, counseling the patient and care coordination
[2025-01-02 14:04] VITALS: TEMP 36.5
[2025-01-02 22:27] LABS: PSA, Screening 3.4 ng/mL (<=6.5)
== END 2025-01-02 15:10 | disposition home or self-care (01) | DRG 176 ==
LOC: ER 11:26 → MS 11:51
PROVIDERS: Admitting Provider Hospitalist; Emergency Provider Emergency Medicine; PCP Nurse Practitioner Family; Responsible Provider Nurse Practitioner Family; Visit Provider Hospitalist
DX: I26.99 Other pulmonary embolism without acute cor pulmonale (principal); N17.9 Acute kidney failure, unspecified; R42 Dizziness and giddiness; R50.9 Fever, unspecified; D69.6 Thrombocytopenia, unspecified; R74.01 Elevation of levels of liver transaminase levels; I10 Essential (primary) hypertension; E78.5 Hyperlipidemia, unspecified; E11.42 Type 2 diabetes mellitus with diabetic polyneuropathy; E11.65 Type 2 diabetes mellitus with hyperglycemia; R05.9 Cough, unspecified; Z89.421 Acquired absence of other right toe(s); N40.0 Benign prostatic hyperplasia without lower urinary tract symptoms; B35.1 Tinea unguium; Z87.891 Personal history of nicotine dependence; N52.9 Male erectile dysfunction, unspecified; Z79.84 Long term (current) use of oral hypoglycemic drugs
CPT/HCPCS: 00123; 36415; 70496; 70498; 80048; 80053; 84153; 87040; 93005; 96360; 97161; 97530; 99285; 71046; 81003; 81015; 83735; 83880; 84443; 84484; 85025; 85610; 86140; 93010; 99222; 99239; J0696; J1815; J3490

== ENCOUNTER 2025-01-17 03:32 | Outpatient (CLI) | payer MEDICARE, SELFPAY ==
[2025-01-17 12:17] LABS: Abs Immature Grans 0.01 10^3/uL (0.0-0.06); Absolute Basophil Count 0.05 10^3/uL (0.0-0.2); Absolute Eosinophil Count 0.12 10^3/uL (0.0-0.7); Absolute Lymphocyte Count 0.93 10^3/uL (1.2-3.4); Absolute Monocyte Count 0.41 10^3/uL (0.1-0.8); Absolute Neutrophil Count 2.09 10^3/uL (1.2-6.7); Basophils % 1.4 %; Eosinophils % 3.3 %; HCT 38.6 % (40.0-50.0); HGB 12.5 g/dL (13.5-17.5); Immature Grans % 0.3 %; Lymphocytes % 25.8 %; MCH 30.6 pg (27.0-33.0); MCHC 32.4 % (32.0-36.0); MCV 94 fL (80-95); MPV 9.9 fL (8.0-11.0); Monocytes % 11.4 %; Neutrophils % 57.8 %; Platelet Count 156 10^3/uL (130-400); RBC 4.09 10^6/uL (4.36-5.78); RDW-SD 47.8 fL; WBC 3.61 10^3/uL (4.4-10.8)
[2025-01-17 12:35] LABS: Hemoglobin A1C 7.3 % (<5.7)
[2025-01-17 12:36] LABS: ALT 18 U/L (16-63); AST 23 U/L (15-37); Albumin 3.1 g/dL (3.4-5.0); Alkaline Phosphatase 110 U/L (46-116); Anion Gap 3.9 mmol/L (3-11); BUN 16 mg/dL (7-18); Bilirubin, Total 0.5 mg/dL (0.2-1.0); CO2 31.1 mmol/L (21.0-32.0); Calcium 8.4 mg/dL (8.5-10.1); Calculated LDL 84 mg/dL (<100); Chloride 106 mmol/L (98-107); Cholesterol 160 mg/dL (<200); Estimated GFR 75.14 (mL/min/1.73m2); Glucose 157 mg/dL (74-106); HDL Cholesterol 37 mg/dL (>or=40); Potassium 3.8 mmol/L (3.5-5.1); Sodium 141 mmol/L (136-145); Total Protein 6.5 g/dL (6.4-8.2); Triglyceride 198 mg/dL (<150)
== END 2025-01-17 03:33 | disposition home or self-care (01) ==
LOC: LOS 03:32
PROVIDERS: Nurse Practitioner Family; PCP Nurse Practitioner Family; Visit Provider Nurse Practitioner Family
DX: Z13.1 Encounter for screening for diabetes mellitus (principal); D69.6 Thrombocytopenia, unspecified; Z13.6 Encounter for screening for cardiovascular disorders
CPT/HCPCS: 36415; 80053; 80061; 83036; 85025